=== PATIENT | female | born 1960 | race Caucasian/White ===

== ENCOUNTER 2018-02-12 04:25 | Emergency (ER) | payer OTHER ==
[2018-02-12] MEDS ORDERED: FENTANYL CITR 100 MCG/2 ML ONE (05:18)
[2018-02-12] MEDS ORDERED: ONDANSETRON 4 MG/2 ML VIAL ONE (05:19)
[2018-02-12 05:45] LABS: Absolute Lymphocytes (CBC) 1.4 K/uL (0.7-4.9); Absolute Monocytes 0.4 K/uL (0.1-1.3); Absolute Neutrophil 6.6 K/uL (1.8-8.0); Basophils % 0.3 % (0-1.3); Eosinophils % 0.8 % (0-4.4); Hematocrit 42.3 % (36.0-45.0); Lymphocytes % 16.2 % (15.3-44.8); MCH 30.4 pg (27.0-35.0); MCV 90.7 fL (80-100); MPV 8.7 fL (7.6-11.3); Monocytes % 4.2 % (3.3-12.3); RBC Red Blood Cell Count 4.66 M/uL (3.86-4.86)
[2018-02-12] MEDS ORDERED: FAMOTIDINE 20 MG/2 ML VIAL IV ONE (05:49)
[2018-02-12 05:52] LABS: Protime INR 0.93
[2018-02-12 06:08] LABS: ALT/SGPT 34 U/L (12-78); AST/SGOT 24 U/L (15-37); Albumin 3.6 g/dL (3.4-5.0); Alkaline Phosphatase 133 U/L (45-117); BUN Blood Urea Nitrogen 19 mg/dL (7-18); Bicarbonate 24 mmol/L (21-32); Bilirubin Direct < 0.1 mg/dL (0-0.2); Bilirubin Total 0.2 mg/dL (0.2-1.0); Glucose Level 114 mg/dL (74-106); Magnesium 2.1 mg/dL (1.8-2.4); NT PRO-BNP 79 pg/mL (<125); Potassium 4.3 mmol/L (3.5-5.1); Protein, Total 7.8 g/dL (6.4-8.2); Sodium Level 138 mmol/L (136-145); Troponin (Emerg Dept Use Only) < 0.02 ng/mL (0.0-0.045)
--- NOTE | 2018-02-12 08:12 | RAD REPORT ---
EXAM DESCRIPTION: CT - Chest Abdomen Pelvis W Cont - 02/12/2018 7:10 am CLINICAL HISTORY: Chest and abdominal pain. Vomiting COMPARISON: None TECHNIQUE: Computed axial tomography of the chest, abdomen and pelvis was obtained. 100 cc Isovue-30 0 was administered intravenously. Oral contrast was not requested. This limits evaluation of bowel. All CT scans are performed using dose optimization technique as appropriate and may include automated exposure control or mA/KV adjustment according to patient size. FINDINGS: A pleural effusion is not present. The pericardial effusion is not present. No mediastinal or hilar lymphadenopathy seen The lungs are clear The liver, spleen, pancreas, adrenals and kidneys appear unremarkable. Gallstones are suspected. Gallbladder wall is probably mildly thickened. The appendix is normal. There is no evidence of diverticulitis Tiny umbilical hernia IMPRESSION: Cholelithiasis is suspected. There probably is mild gallbladder wall thickening which ma y indicate cholecystitis
--- NOTE | 2018-02-12 09:16 | RAD REPORT ---
EXAM DESCRIPTION: [facility] Single View02/12/2018 5:13 am CLINICAL HISTORY: Chest pain COMPARISON: 2017 FINDINGS: The lungs appear clear of acute infiltrate. The heart is normal size IMPRESSION: No acute abnormalities displayed
--- NOTE | 2018-02-12 10:19 | EDPHYS ---
Physician Documentation [facility] Name: Ashleigh Vogt Age: 57 yrs Sex: Female : 1960 Arrival Date: 02/12/2018 Time: 04:25 Bed 20 Private MD: ED Physician Ayush Winslow HPI: 02/12 06:17 This 57 yrs old Female presents to ER via Ambulatory with complaints of gs Nausea, Chest Pain. 06:17 The patient presents to the emergency department with nausea, vomiting. Onset: The gs symptoms/episode began/occurred acutely, just prior to arrival, 3 hour(s) ago. Possible causes: unknown. The symptoms are aggravated by nothing. The symptoms are alleviated by nothing. Associated signs and symptoms: Pertinent positives: chest pain. Severity of symptoms: At their worst the symptoms were moderate in the emergency department the symptoms are unchanged. The patient has experienced similar episodes in the past, a few times. The patient has not recently seen a physician. 06:17 Associated signs and symptoms: Pertinent positives: abdominal pain. gs Historical: - Allergies: 04:39 Topamax; fc - Home Meds: 04:39 Ambien 10 mg oral tab 1 tab nightly [Active]; Zoloft 100 mg Oral tab 1.5 tabs once fc daily [Active]; [place] 5-325 mg Oral tab 1 tab three times a day [Active]; - PMHx: 04:39 Depression; High Cholesterol; insomnia; neck pain; Back pain; fc - PSHx: 04:39 eye surg; ; fc - Immunization history:: Last tetanus immunization: up to date Flu vaccine is not up to date. - Social history:: Smoking status: Patient/guardian denies using tobacco, Patient/guardian denies using alcohol, street drugs. - Ebola Screening: : Patient negative for fever greater than or equal to 101.5 degrees Fahrenheit, and additional compatible Ebola Virus Disease symptoms Patient denies exposure to infectious person Patient denies travel to an Ebola-affected area in the 21 days before illness onset. ROS: 06:17 All other systems are negative. gs 16:01 Constitutional: Negative for fever, chills, and weight loss. kdr Exam: 06:17 Head/Face: Normocephalic, atraumatic. Eyes: Pupils equal round and reactive to light, gs extra-ocular motions intact. Lids and lashes normal. Conjunctiva and sclera are non-icteric and not injected. Cornea within normal limits. Periorbital areas with no swelling, redness, or edema. ENT: Nares patent. No nasal discharge, no septal abnormalities noted. Tympanic membranes are normal and external auditory canals are clear. Oropharynx with no redness, swelling, or masses, exudates, or evidence of obstruction, uvula midline. Mucous membranes moist. Neck: Trachea midline, no thyromegaly or masses palpated, and no cervical lymphadenopathy. Supple, full range of motion without nuchal rigidity, or vertebral point tenderness. No Meningismus. Chest/axilla: Normal chest wall appearance and motion. Nontender with no deformity. No lesions are appreciated. Cardiovascular: Regular rate and rhythm with a normal S1 and S2. No gallops, murmurs, or rubs. Normal PMI, no JVD. No pulse deficits. Respiratory: Lungs have equal breath sounds bilaterally, clear to auscultation and percussion. No rales, rhonchi or wheezes noted. No increased work of breathing, no retractions or nasal flaring. Back: No spinal tenderness. No costovertebral tenderness. Full range of motion. Skin: Warm, dry with normal turgor. Normal color with no rashes, no lesions, and no evidence of cellulitis. MS/ Extremity: Pulses equal, no cyanosis. Neurovascular intact. Full, normal range of motion. Neuro: Awake and alert, GCS 15, oriented to person, place, time, and situation. Cranial nerves II-XII grossly intact. Motor strength 5/5 in all extremities. Sensory grossly intact. Cerebellar exam normal. Normal gait. 06:17 Constitutional: The patient appears alert, awake, uncomfortable. 06:17 ECG was reviewed by the Attending Physician. 06:17 Abdomen/GI: Palpation: mild abdominal tenderness, in the epigastric area, pain. 06:20 ECG was reviewed by the Attending Physician. Vital Signs: 04:30 BP 154 / 70; Pulse 67; Resp 18; Temp 97.8(O); Pulse Ox 99% on R/A; Weight 122.47 kg fc (R); Height 5 ft. 3 in. (160.02 cm) (R); Pain 8/10; 05:54 BP 136 / 75; Pulse 60; Resp 15 S; Pulse Ox 96% on R/A; jd3 07:15 BP 134 / 68; Pulse 73; Resp 18; Pulse Ox 99% on R/A; Pain 3/10; em 09:30 BP 131 / 74; Pulse 61; Resp 19; Pulse Ox 97% on R/A; em 10:39 BP 118 / 69; Pulse 75; Resp 18; Pulse Ox 99% on R/A; Pain 3/10; em 04:30 Body Mass Index 47.83 (122.47 kg, 160.02 cm) fc MDM: 04:52 Patient medically screened. gs 06:20 Differential diagnosis: Nonspecific abd pain, gastritis, pancreatitis, cad aaa. Data reviewed: vital signs, nurses notes. 10:12 ED course: The patient is feeling much better and was able to take PO without problem. kdr She was offered admission but felt better and was felt she could follow-up. She also had cataract surgery scheduled and didn't want to compromise that appointment. 02/12 04:53 Order name: Basic Metabolic Panel; Complete Time: 07:45 02/12 04:53 Order name: CBC with Diff; Complete Time: 07:45 02/12 04:53 Order name: LFT's; Complete Time: 07:45 02/12 04:53 Order name: Magnesium; Complete Time: 07:45 02/12 04:53 Order name: NT PRO-BNP; Complete Time: 07:45 02/12 04:53 Order name: PT-INR; Complete Time: 07:45 02/12 04:53 Order name: Troponin (emerg Dept Use Only); Complete Time: 07:45 02/12 04:53 Order name: XRAY Chest (1 view); Complete Time: 10:22 02/12 04:53 Order name: Lipase; Complete Time: 07:45 02/12 06:11 Order name: Troponin (emerg Dept Use Only); Complete Time: 08:11 02/12 06:32 Order name: Chest Abdomen Pelvis W Cont; Complete Time: 08:28 EDNC 02/12 04:41 Order name: EKG; Complete Time: 04:39 [facility] 02/12 04:41 Order name: EKG - Nurse/Tech; Complete Time: 04:41 [facility] 02/12 04:53 Order name: EKG; Complete Time: 04:55 02/12 04:53 Order name: Cardiac monitoring; Complete Time: 04:53 02/12 04:53 Order name: EKG - Nurse/Tech; Complete Time: 04:53 02/12 04:53 Order name: IV Saline Lock; Complete Time: 05:16 02/12 04:53 Order name: Labs collected and sent; Complete Time: 05:16 02/12 04:53 Order name: O2 Per Protocol; Complete Time: 04:54 02/12 04:53 Order name: O2 Sat Monitoring; Complete Time: 04:54 02/12 06:11 Order name: EKG - Nurse/Tech; Complete Time: 06:39 gs EC:40 Rate is 59 beats/min. Rhythm is regular. SD interval is normal. QRS interval is normal. gs QT interval is normal. No Q waves. T waves are Flattened. No ST changes noted. Clinical impression: NSR w/ Non-specific ST/T Changes. Interpreted by me. 06:20 Rate is 59 beats/min. Rhythm is regular. SD interval is normal. QRS interval is normal. gs T waves are Flattened. No ST changes noted. Clinical impression: NSR w/ Non-specific ST/T Changes and Abnormal EKG without significant change. Interpreted by me. Administered Medications: 05:16 Drug: Zofran 4 mg Route: IVP; Site: right forearm; jd3 07:12 Follow up: Response: No adverse reaction em 05:16 Drug: fentaNYL (PF) 50 mcg Route: IVP; Site: right forearm; jd3 07:13 Follow up: Response: No adverse reaction em 05:45 Drug: Pepcid 20 mg Route: IVP; Site: right forearm; jd3 07:13 Follow up: Response: No adverse reaction em 06:43 Drug: fentaNYL (PF) 50 mcg Route: IVP; Site: right forearm; jd3 07:13 Follow up: Response: No adverse reaction em Disposition: 02/12/18 10:18 Discharged to Home. Impression: Abdominal and pelvic pain, Biliary colic. - Condition is Stable. - Discharge Instructions: Cholelithiasis, [id number], Nausea and Vomiting, Adult, Khqf-[id number], Abdominal Pain, Adult, Gguv-zm-Husv. - Prescriptions for Pepcid 20 mg Oral Tablet - take 1 tablet by ORAL route every 12 hours for 5 days; 20 tablet. Zofran 4 mg Oral Tablet - take 1 tablet by ORAL route every 4-6 hours As needed; 12 tablet. Tramadol 50 mg Oral Tablet - take 1 tablet by ORAL route every 4-6 hours as needed; 12 tablet. - Medication Reconciliation Form, Thank You Letter form. - Follow up: Private Physician; When: 2 - 3 days; Reason: If symptoms return, Further diagnostic work-up, Recheck today's complaints, Continuance of care, Re-evaluation by your physician. Follow up: Pancho Noriega MD; When: 2 - 3 days; Reason: If symptoms return, Further diagnostic work-up, Recheck today's complaints, Continuance of care, Re-evaluation by your physician. - Problem is new. - Symptoms have improved. Signatures: Dispatcher [employer] [facility] Ayush Winslow MD MD kdr Chretien, Felicia RN RN fc Daryn Rollins, SPRAY DRY OPERATOR SPRAY DRY OPERATOR em Ryley Campos MD MD gs Davies, Jonathon RN RN jd3 Corrections: (The following items were deleted from the chart) 06:32 06:12 Chest Abdomen W/ Con+CT.RAD.BRZ ordered. [facility] EDNC 10:40 10:18 02/12/2018 10:18 Discharged to Home. Impression: Abdominal and pelvic pain; em Biliary colic. Condition is Stable. Forms are Medication Reconciliation Form, Thank You Letter, Antibiotic Education, Prescription Opioid Use. Follow up: Private Physician; When: 2 - 3 days; Reason: If symptoms return, Further diagnostic work-up, Recheck today's complaints, Continuance of care, Re-evaluation by your physician. Follow up: Pancho Noirega; When: 2 - 3 days; Reason: If symptoms return, Further diagnostic work-up, Recheck today's complaints, Continuance of care, Re-evaluation by your physician. Problem is new. Symptoms have improved. kdr
--- NOTE | 2018-02-12 10:19 | ER ---
Nurse's Notes [facility] Name: Ashleigh Vogt Age: 57 yrs Sex: Female : 1960 Arrival Date: 02/12/2018 Time: 04:25 Bed 20 Private MD: Diagnosis: Abdominal and pelvic pain;Biliary colic Presentation: 02/12 04:30 Presenting complaint: Patient states: that at about midnight she started to have fc epigastric pain that is sharp/stabbing along with nausea and vomiting. Transition of care: patient was not received from another setting of care. Onset of symptoms was February 12, 2018 at 00:00. Risk Assessment: Do you want to hurt yourself or someone else? Patient reports no desire to harm self or others. Initial Sepsis Screen: Does the patient meet any 2 criteria? No. Patient's initial sepsis screen is negative. Does the patient have a suspected source of infection? No. Patient's initial sepsis screen is negative. Care prior to arrival: None. 04:30 Method Of Arrival: Ambulatory 04:30 Acuity: SCARLETT 3 fc Historical: - Allergies: 04:39 Topamax; fc - Home Meds: 04:39 Ambien 10 mg oral tab 1 tab nightly [Active]; Zoloft 100 mg Oral tab 1.5 tabs once fc daily [Active]; [place] 5-325 mg Oral tab 1 tab three times a day [Active]; - PMHx: 04:39 Depression; High Cholesterol; insomnia; neck pain; Back pain; fc - PSHx: 04:39 eye surg; ; fc - Immunization history:: Last tetanus immunization: up to date Flu vaccine is not up to date. - Social history:: Smoking status: Patient/guardian denies using tobacco, Patient/guardian denies using alcohol, street drugs. - Ebola Screening: : Patient negative for fever greater than or equal to 101.5 degrees Fahrenheit, and additional compatible Ebola Virus Disease symptoms Patient denies exposure to infectious person Patient denies travel to an Ebola-affected area in the 21 days before illness onset. Screenin:30 Abuse screen: Denies threats or abuse. Nutritional screening: No deficits noted. fc Tuberculosis screening: No symptoms or risk factors identified. Fall Risk None identified. Assessment: 04:38 General: Appears in no apparent distress. uncomfortable, Behavior is calm, cooperative, jd3 appropriate for age. Pain: Complains of pain in epigastric area Quality of pain is described as sharp. Neuro: Level of Consciousness is awake, alert, obeys commands, Oriented to person, place, time, situation, Appropriate for age. Cardiovascular: Heart tones S1 S2 present Capillary refill < 3 seconds Patient's skin is warm and dry. Respiratory: Airway is patent Respiratory effort is even, unlabored, Respiratory pattern is regular, symmetrical, Breath sounds are clear bilaterally. GI: Abdomen is round non-distended, obese, Bowel sounds present X 4 quads. Abd is soft and non tender X 4 quads. Reports upper abdominal pain, nausea, vomiting, Patient currently denies diarrhea. : No signs and/or symptoms were reported regarding the genitourinary system. EENT: No signs and/or symptoms were reported regarding the EENT system. Derm: Skin is intact, Skin is dry, Skin is normal, Skin temperature is warm. Musculoskeletal: Circulation, motion, and sensation intact. Range of motion: intact in all extremities. 05:54 Reassessment: Patient appears in no apparent distress at this time. Patient and/or jd3 family updated on plan of care and expected duration. Pain level reassessed. Patient is alert, oriented x 3, equal unlabored respirations, skin warm/dry/pink. 07:15 Reassessment: Patient appears in no apparent distress at this time. Patient and/or em family updated on plan of care and expected duration. Pain level reassessed. Patient is alert, oriented x 3, equal unlabored respirations, skin warm/dry/pink. rates pain 3/10 Patient states feeling better. Patient states symptoms have improved. 08:29 Reassessment: Patient appears in no apparent distress at this time. Patient and/or em family updated on plan of care and expected duration. Pain level reassessed. Patient is alert, oriented x 3, equal unlabored respirations, skin warm/dry/pink. resting comfortably in bed, pending disposition. 10:18 Reassessment: Patient appears in no apparent distress at this time. Patient and/or em family updated on plan of care and expected duration. Pain level reassessed. Patient is alert, oriented x 3, equal unlabored respirations, skin warm/dry/pink. given crackers and soda, tolerated well Patient states feeling better. Patient states symptoms have improved. Vital Signs: 04:30 BP 154 / 70; Pulse 67; Resp 18; Temp 97.8(O); Pulse Ox 99% on R/A; Weight 122.47 kg (R); Height 5 ft. 3 in. (160.02 cm) (R); Pain 8/10; 05:54 BP 136 / 75; Pulse 60; Resp 15 S; Pulse Ox 96% on R/A; jd3 07:15 BP 134 / 68; Pulse 73; Resp 18; Pulse Ox 99% on R/A; Pain 3/10; em 09:30 BP 131 / 74; Pulse 61; Resp 19; Pulse Ox 97% on R/A; em 10:39 BP 118 / 69; Pulse 75; Resp 18; Pulse Ox 99% on R/A; Pain 3/10; em 04:30 Body Mass Index 47.83 (122.47 kg, 160.02 cm) ED Course: 04:25 Patient arrived in ED. am2 04:30 Arm band placed on Patient placed in an exam room, on a stretcher. fc 04:30 Patient has correct armband on for positive identification. Bed in low position. Call light in reach. telemetry monitor on. Pulse ox on. NIBP on. 04:30 No provider procedures requiring assistance completed. fc 04:32 Ryley Campos MD is Attending Physician. gs 04:35 Khoi Nuñez, RN is Primary Nurse. jd3 04:36 Triage completed. fc 05:05 Inserted saline lock: 22 gauge in right forearm, using aseptic technique. Blood jd3 collected. 05:12 X-ray completed. Portable x-ray completed in exam room. Patient tolerated procedure kw well. 05:15 XRAY Chest (1 view) In Process Unspecified. EDMS 07:09 CT completed. Patient tolerated procedure well. Patient moved to CT via stretcher. Patient moved back from CT. 07:11 Attending Physician role handed off by Ryley Campos MD kdr 07:11 Ayush Winslow MD is Attending Physician. kdr 07:14 Chest Abdomen Pelvis W Cont In Process Unspecified. EDMS 10:16 Pancho Noriega MD is Referral Physician. kdr 10:40 IV discontinued, intact, bleeding controlled, No redness/swelling at site. Pressure em dressing applied. Administered Medications: 05:16 Drug: Zofran 4 mg Route: IVP; Site: right forearm; jd3 07:12 Follow up: Response: No adverse reaction em 05:16 Drug: fentaNYL (PF) 50 mcg Route: IVP; Site: right forearm; jd3 07:13 Follow up: Response: No adverse reaction em 05:45 Drug: Pepcid 20 mg Route: IVP; Site: right forearm; jd3 07:13 Follow up: Response: No adverse reaction em 06:43 Drug: fentaNYL (PF) 50 mcg Route: IVP; Site: right forearm; jd3 07:13 Follow up: Response: No adverse reaction em Outcome: 10:18 Discharge ordered by MD. kdr 10:40 Discharged to home ambulatory. em 10:40 Condition: good 10:40 Discharge instructions given to patient, Instructed on discharge instructions, follow up and referral plans. medication usage, Demonstrated understanding of instructions, follow-up care, medications, Prescriptions given X 3. 10:40 Patient left the ED. em Signatures: Dispatcher [employer] EDMS Ayush Winslow MD MD kdr Hagler, Ervin eh Chretien, Felicia, RN RN Daryn Rollins, ETL ANALYST ETL ANALYST em Ivana Reyes Amanda am2 Starr, Gregory, MD MD gs Davies, Jonathon, RN RN jd3
--- NOTE | 2018-02-12 14:15 | EKG ---
Test Date: 2018-02-12 Test Time: 06:15:47 Manager Credit: AKIL MEASUREMENT RESULTS: Intervals: Rate: 59 AK: 176 QRSD: 78 QT: 432 QTc: 427 [place]: P: 35 AK: 176 QRS: 36 T: 69 INTERPRETIVE STATEMENTS: Sinus bradycardia Nonspecific T wave abnormality Abnormal ECG Compared to ECG 12/16/2016 20:23:33 Sinus rhythm no longer present T-wave abnormality still present Electronically Signed On 02-12-18 14:14:13 FIELD ARTILLERY SENIOR SERGEANT by Dallas Navarro
--- NOTE | 2018-02-12 14:15 | EKG ---
Test Date: 2018-02-12 Test Time: 04:38:53 Food Cart Attendant: GRISELDA MEASUREMENT RESULTS: Intervals: Rate: 59 TN: 174 QRSD: 74 QT: 410 QTc: 405 [place]: P: 25 TN: 174 QRS: 31 T: 74 INTERPRETIVE STATEMENTS: Sinus bradycardia Nonspecific T wave abnormality Abnormal ECG Compared to ECG 12/16/2016 20:23:33 Sinus rhythm no longer present T-wave abnormality still present Electronically Signed On 02-12-18 14:14:40 TRANSITION MGR RN by Dallas Navarro
== END 2018-02-12 10:40 | disposition home or self-care (01) ==
LOC: ER 04:25
DX: K80.50 Calculus of bile duct without cholangitis or cholecystitis without obstruction (principal); E78.00 Pure hypercholesterolemia, unspecified; F32.9 Major depressive disorder, single episode, unspecified; Z88.8 Allergy status to other drugs, medicaments and biological substances
CPT/HCPCS: 36415; 71045; 71260; 74177; 80048; 80076; 83690; 83735; 83880; 84484 ×2; 85025; 85610; 93005 ×2; 96374; 96375; 99285; J2405; J3010; Q9967

== ENCOUNTER 2018-02-15 12:51 | Day surgery (SDC) | payer OTHER ==
[2018-02-15] MEDS ORDERED: LIDOCAINE 2% MPF 5 ML VIAL ONE ×2 (13:20→14:10)
[2018-02-15] MEDS ORDERED: TETRACAINE HCL 0.5% 2ML OPTH ONE (13:21)
[2018-02-15] MEDS ORDERED: NA CHLORIDE 0.9% 500 ML ONE (13:21)
[2018-02-15] MEDS: CYCLOPENTOLATE 1% OPTH 2 ML ONE ×3 (13:23→13:33)
[2018-02-15] MEDS: PHENYLEPHRINE 10% OPTH 5ML ONE ×3 (13:23→13:33)
[2018-02-15] MEDS ORDERED: BALANCED SALT IRRIG PLAIN 500 ML BTL IRR ONE (13:42)
[2018-02-15] MEDS ORDERED: NS 0.9% VIAL 10 ML ONE (13:42)
[2018-02-15] MEDS ORDERED: DUOVISC 1 KIT OPTH ONE (13:42)
[2018-02-15] MEDS ORDERED: EPINEPHRINE/PF 1 MG/ML AMP ONE (13:42)
[2018-02-15] MEDS ORDERED: MOXIFLOXACIN HCL 10 DROPS/ML **OR USE OPTH ONE (13:43)
[2018-02-15] MEDS ORDERED: BUPIVACAINE 0.25% PF 10 ML VIAL ONE (13:56)
[2018-02-15] MEDS ORDERED: PROPOFOL 200 MG/20 ML VIAL IV ONE (14:09)
--- NOTE | 2018-02-15 15:26 | P.BOP ---
Preoperative diagnosis: Nuclear sclerotic cataract OD Postoperative diagnosis: Same Primary procedure: Phacoemulsification with IOL OD Estimated blood loss: None Anesthesia: Local (Subtenon's infusion with anesthesia for cataract surgery) Complications: None Implants: [id number] +26.5 Transferred to: Other (Day surgery) Condition: Good
--- NOTE | 2018-02-16 02:56 | OP ---
Surgeon: Denise Christine MD Anesthesiologist: Sharon Castanon CRNA and Sadiq Mccormack MD. Preoperative Diagnosis: Nuclear sclerotic cataract, right eye. Operation Performed: Phacoemulsification with intraocular lens implant, right eye. Anesthesia: Per cataract surgery. Complications: None. Description Of Procedure: In day surgery, the patient was prepped with Betadine and draped. A conju nctival incision was made in the inferior nasal quadrant with Yong scissors. A sub-Tenon block c onsisting of a 1:1 mixture of 2% Xylocaine and 0.25% bupivacaine was placed through the conjunctival incision with a blunt cannula. A [place] balloon was placed over the eye and the patient was transferr ed to the operating room. In the operating room the patient was prepped and draped in the usual sterile fashion for ophthalmic surgery. A lid speculum was placed in the right eye. Two paracentesis sites were made superiorly an d inferiorly in the limbal cornea. Viscoat was placed in the anterior chamber and a crescent blade w as used to make a corneal groove and tunnel, and a keratome was used to enter the anterior chamber. Provisc was placed in the anterior chamber and a 360 degree capsulotomy was performed with a cystitom e. The lens was hydrodissected with BSS and rotated freely. The lens was removed with a stop and ch op technique. A 33.36 phaco CDE was used to remove the lens. Residual cortex was removed with the i rrigation and aspiration. Provisc was placed in the capsular bag. A ZCB00 +26.[address] aced in the capsular bag without complications. Irrigation and aspiration were used to remove residu al viscoelastic. The paracentesis sites were hydrated with BSS. The wound and paracentesis sites we re inspected and found to be watertight. Vigamox 0.07 cc was placed intracamerally at the end of the procedure. The eye was irrigated with balanced salt solution. The eye was patched with a soft cott on patch and Lee metal shield. The patient was returned to day surgery in good condition. Comments: The conjunctiva was incised with Yong scissors and the incision was initiated in the s clera rather than in the cornea. Discharge Instructions: Ms. Vogt is discharged to home in good condition and is to follow up with Dr. Christine in the morning. ATUL/ROBBI Voice ID: [id number] Report ID: [id number]
== END 2018-02-15 16:08 | disposition home or self-care (01) ==
LOC: OR 12:51
PROVIDERS: ATTEND Ophthalmology Retina Specialist
PROC: 08RJ3JZ Replacement of Right Lens with Synthetic Substitute, Percutaneous Approach (ICD-10-PCS; principal; 2018-02-15 11:45)
DX: H25.11 Age-related nuclear cataract, right eye (principal); M19.90 Unspecified osteoarthritis, unspecified site; F32.9 Major depressive disorder, single episode, unspecified; Z88.6 Allergy status to analgesic agent; Z83.518 Family history of other specified eye disorder
CPT/HCPCS: 66984; J0171; J2704

== ENCOUNTER 2018-02-24 06:13 | Day surgery (SDC) | payer OTHER ==
[2018-02-23 15:26] LABS: Absolute Lymphocytes (CBC) 2.1 K/uL (0.7-4.9); Absolute Monocytes 0.5 K/uL (0.1-1.3); Absolute Neutrophil 4.4 K/uL (1.8-8.0); Basophils % 0.5 % (0-1.3); Eosinophils % 1.5 % (0-4.4); Lymphocytes % 29.3 % (15.3-44.8); MCV 90.9 fL (80-100); MPV 8.8 fL (7.6-11.3); Monocytes % 7.3 % (3.3-12.3); RBC Red Blood Cell Count 4.73 M/uL (3.86-4.86)
[2018-02-23 15:37] LABS: Potassium 4.3 mmol/L (3.5-5.1)
[2018-02-23 15:39] LABS: Albumin 3.7 g/dL (3.4-5.0); Bilirubin Direct 0.1 mg/dL (0-0.2); Bilirubin Total 0.3 mg/dL (0.2-1.0); Protein, Total 7.7 g/dL (6.4-8.2)
[2018-02-24] MEDS ORDERED: CEFOXITIN/SWI 1gm 1 GM/10 ML SYR ONE (07:16)
[2018-02-24] MEDS ORDERED: Ringers Lactate 1,000 ML IV ONE ×2 (07:16→09:13)
[2018-02-24] MEDS ORDERED: MIDAZOLAM HCL 2 MG/2 ML INJ ONE (07:25)
[2018-02-24] MEDS ORDERED: FENTANYL CITR 100 MCG/2 ML ONE ×2 (07:25→08:34)
[2018-02-24] MEDS ORDERED: PROPOFOL 200 MG/20 ML VIAL IV ONE (07:25)
[2018-02-24] MEDS ORDERED: LIDOCAINE 1% MPF 5 ML VIAL ONE (07:26)
[2018-02-24] MEDS ORDERED: ROCURONIUM 50 MG/5 ML VIAL IV ONE (07:26)
[2018-02-24] MEDS ORDERED: KETOROLAC 30 MG/ML INJ ONE (08:24)
[2018-02-24] MEDS ORDERED: GLYCOPYRROLATE 0.2 MG/ML SYR ONE ×3 (08:24→08:28)
[2018-02-24] MEDS ORDERED: NEOSTIGMINE 1 MG/ML -5 ML SYRINGE ONE (08:24)
[2018-02-24] MEDS ORDERED: DEXAMETHASONE 10 MG/ML VIAL ONE (08:25)
[2018-02-24] MEDS ORDERED: ONDANSETRON 4 MG/2 ML VIAL ONE (08:25)
--- NOTE | 2018-02-24 08:59 | P.BOP ---
Preoperative diagnosis: acute cholecystitis, symptomatic cholelithiasis Postoperative diagnosis: same Primary procedure: Laparoscopic cholecystectomy Estimated blood loss: <10cc Specimen: gb Findings: as above Anesthesia: General Complications: None Transferred to: Recovery Room Condition: Good
[2018-02-24] MEDS: MEPERIDINE HCL 25 MG/0.5 ML ONE ×2 (09:06→09:16)
[2018-02-24] MEDS: MEPERIDINE HCL 50 MG/ML AMP ONE ×2 (09:24→09:30)
[2018-02-24] MEDS ORDERED: HYDROCODONE/APAP 5/325 MG TAB ONE (10:34)
== END 2018-02-24 11:15 | disposition home or self-care (01) ==
LOC: OR 06:13
PROVIDERS: ATTEND Surgery
PROC: 0FT44ZZ Resection of Gallbladder, Percutaneous Endoscopic Approach (ICD-10-PCS; principal; 2018-02-24 07:30)
DX: K80.12 Calculus of gallbladder with acute and chronic cholecystitis without obstruction (principal); E66.01 Morbid (severe) obesity due to excess calories; Z68.42 Body mass index [BMI] 45.0-49.9, adult; Z88.8 Allergy status to other drugs, medicaments and biological substances; Z83.3 Family history of diabetes mellitus
CPT/HCPCS: 36415; 47562; 80048; 80076; 82150; 83690; 84703; 85025; 88304; J1100; J2175 ×2; J2250; J2405; J2704; J2710; J3010 ×2

== ENCOUNTER 2019-06-26 13:10 | Emergency (ER) | payer OTHER ==
--- NOTE | 2019-06-26 14:05 | RAD REPORT ---
EXAM DESCRIPTION: [facility] Single View06/26/2019 1:54 pm CLINICAL HISTORY: cough COMPARISON: none FINDINGS: The lungs appear clear of acute infiltrate. The heart is mildly enlarged IMPRESSION: No acute abnormalities displayed
--- NOTE | 2019-06-26 14:16 | EDPHYS ---
Physician Documentation [facility] Name: Ashleigh Vogt Age: 58 yrs Sex: Female : 1960 Arrival Date: 06/26/2019 Time: 13:12 Bed 6 Private MD: ED Physician Lisa Hinojosa HPI: 06/25 14:17 This 58 yrs old Female presents to ER via Ambulatory with complaints of kb Breathing Difficulty. 14:18 The patient or guardian reports cough, that is intermittent, described as moderate, kb with no sputum, difficulty breathing. Onset: The symptoms/episode began/occurred 3 week(s) ago. Severity of symptoms: At their worst the symptoms were moderate, in the emergency department the symptoms are unchanged. Modifying factors: The symptoms are alleviated by nothing, the symptoms are aggravated by nothing. Associated signs and symptoms: The patient has no apparent associated signs or symptoms. The patient has not experienced similar symptoms in the past. The patient has not recently seen a physician. Pt reports cough, wheezing and shortness of breath for 3 weeks. States she just completed a course of steroids and still isn't better so she came to get an x-ray to make sure there wasn't a pneumonia. States she was tested for covid on Thursday and hasn't gotten results. . Historical: - Allergies: 13:25 Topamax; ll1 - PMHx: 13:25 Back pain; High Cholesterol; Depression; insomnia; neck pain; ll1 - PSHx: 13:25 eye surg; ; ll1 - Social history:: Smoking status: Patient denies any tobacco usage or history of. Patient uses alcohol, only on a social basis. Patient/guardian denies using street drugs, tobacco products. ROS: 14:17 Constitutional: Negative for fever, chills, and weight loss, ENT: Negative for injury, kb pain, and discharge, Neck: Negative for injury, pain, and swelling, Cardiovascular: Negative for chest pain, palpitations, and edema, Abdomen/GI: Negative for abdominal pain, nausea, vomiting, diarrhea, and constipation, Back: Negative for injury and pain, MS/Extremity: Negative for injury and deformity, Skin: Negative for injury, rash, and discoloration, Neuro: Negative for headache, weakness, numbness, tingling, and seizure. 14:17 Respiratory: Positive for cough, shortness of breath, Negative for dyspnea on exertion, hemoptysis, orthopnea, pleurisy, sputum production, wheezing. Exam: 14:17 Constitutional: This is a well developed, well nourished patient who is awake, alert, kb and in no acute distress. Head/Face: Normocephalic, atraumatic. ENT: Nares patent. No nasal discharge, no septal abnormalities noted. Tympanic membranes are normal and external auditory canals are clear. Oropharynx with no redness, swelling, or masses, exudates, or evidence of obstruction, uvula midline. Mucous membranes moist. Neck: Trachea midline, no thyromegaly or masses palpated, and no cervical lymphadenopathy. Supple, full range of motion without nuchal rigidity, or vertebral point tenderness. No Meningismus. Chest/axilla: Normal chest wall appearance and motion. Nontender with no deformity. No lesions are appreciated. Cardiovascular: Regular rate and rhythm with a normal S1 and S2. No gallops, murmurs, or rubs. Normal PMI, no JVD. No pulse deficits. Respiratory: Lungs have equal breath sounds bilaterally, clear to auscultation and percussion. No rales, rhonchi or wheezes noted. No increased work of breathing, no retractions or nasal flaring. Abdomen/GI: Soft, non-tender, with normal bowel sounds. No distension or tympany. No guarding or rebound. No evidence of tenderness throughout. Skin: Warm, dry with normal turgor. Normal color with no rashes, no lesions, and no evidence of cellulitis. MS/ Extremity: Pulses equal, no cyanosis. Neurovascular intact. Full, normal range of motion. Neuro: Awake and alert, GCS 15, oriented to person, place, time, and situation. Cranial nerves II-XII grossly intact. Motor strength 5/5 in all extremities. Sensory grossly intact. Cerebellar exam normal. Normal gait. Vital Signs: 13:20 BP 178 / 95; Pulse 83; Resp 20; Temp 98.3(O); Pulse Ox 96% on R/A; Pain 2/10; ll1 MDM: 13:19 Patient medically screened. kb 14:17 Data reviewed: vital signs, nurses notes. Data interpreted: Pulse oximetry: on room air kb is 96 %. Interpretation: normal. 14:17 Counseling: I had a detailed discussion with the patient and/or guardian regarding: the kb historical points, exam findings, and any diagnostic results supporting the discharge/admit diagnosis, radiology results, the need for outpatient follow up, a family practitioner, to return to the emergency department if symptoms worsen or persist or if there are any questions or concerns that arise at home. 04 13:44 Order name: Chest Single View; Complete Time: 14:11 EDMN Administered Medications: No medications were administered Disposition: 17:23 Co-signature as Attending Physician, Lisa Hinojosa MD. ma2 Disposition: 06/26/19 14:16 Discharged to Home. Impression: Bronchitis, not specified as acute or chronic. - Condition is Stable. - Discharge Instructions: Acute Bronchitis, [id number], Viral Respiratory Infection, [id number]. - Medication Reconciliation Form, Thank You Letter, Antibiotic Education, Prescription Opioid Use form. - Follow up: Emergency Department; When: As needed; Reason: Worsening of condition. Follow up: Private Physician; When: 2 - 3 days; Reason: Recheck today's complaints, Continuance of care, Re-evaluation by your physician. Signatures: Dispatcher [employer] [facility] Xiomy Maya, CLINICAL NURSING MANAGER-C CLINICAL NURSING MANAGER-Daryn Sarah, RN Lisa Tijerina MD MD ma2 Felice Fisher RN RN ll1 Corrections: (The following items were deleted from the chart) 13:44 13:25 Chest Pa And Lat (2 Views)+RAD.RAD.BRZ ordered. [facility] 14:25 14:16 06/26/2019 14:16 Discharged to Home. Impression: Bronchitis, not specified as em acute or chronic. Condition is Stable. Forms are Medication Reconciliation Form, Thank You Letter, Antibiotic Education, Prescription Opioid Use. Follow up: Emergency Department; When: As needed; Reason: Worsening of condition. Follow up: Private Physician; When: 2 - 3 days; Reason: Recheck today's complaints, Continuance of care, Re-evaluation by your physician. kb
--- NOTE | 2019-06-26 14:16 | ER ---
Nurse's Notes [facility] Name: Ashleigh Vogt Age: 58 yrs Sex: Female : 1960 Arrival Date: 06/26/2019 Time: 13:12 Bed 6 Private MD: Diagnosis: Bronchitis, not specified as acute or chronic Presentation: 06/25 13:20 Chief complaint: Patient states: Cough for 3 weeks. Took round of steroids, cough ll1 med.-not any better. Highest fever at home 99.5. Chest pain is intermittent since yesterday with SOB noticed today. States she hasn't gotten the result of her covid test eyt. Coronavirus screen: Surgical mask placed on patient. Patient moved to private room, placed in contact and droplet isolation with eye protection until further assessment. Patient reports a cough. Patient reports shortness of breath or difficulty breathing. Patient denies measured and/or subjective temperature greater than 100.4F prior to today's visit. Patient denies travel on a cruise ship or to a country the [facility] currently lists as an affected area. Patient denies contact with known and/or suspected case of COVID-19. Ebola Screen: Patient denies travel to an Ebola-affected area in the 21 days before illness onset. Initial Sepsis Screen: Does the patient meet any 2 criteria? No. Patient's initial sepsis screen is negative. Risk Assessment: Do you want to hurt yourself or someone else? Patient reports no desire to harm self or others. Onset of symptoms was June 06, 2019. 13:20 Method Of Arrival: Ambulatory ll1 13:20 Acuity: SCARLETT 3 ll1 Historical: - Allergies: 13:25 Topamax; ll1 - PMHx: 13:25 Back pain; High Cholesterol; Depression; insomnia; neck pain; ll1 - PSHx: 13:25 eye surg; ; ll1 - Social history:: Smoking status: Patient denies any tobacco usage or history of. Patient uses alcohol, only on a social basis. Patient/guardian denies using street drugs, tobacco products. Screenin:39 Abuse screen: Denies threats or abuse. Nutritional screening: No deficits noted. em Tuberculosis screening: No symptoms or risk factors identified. Fall Risk None identified. Assessment: 14:15 General: Appears in no apparent distress. uncomfortable, Behavior is calm, cooperative, em appropriate for age, Denies fever. Pain: Complains of pain in chest Pain currently is 2 out of 10 on a pain scale. Neuro: Level of Consciousness is awake, alert, obeys commands, Oriented to person, place, time, situation, Appropriate for age. Cardiovascular: Rhythm is regular. Respiratory: Reports shortness of breath cough that is dry, Airway is patent Respiratory effort is even, unlabored, Respiratory pattern is regular, symmetrical, Breath sounds are clear bilaterally. Onset: The symptoms/episode began/occurred 3 weeks ago. GI: Abdomen is obese. Derm: Skin is intact, is healthy with good turgor, Skin is pink, warm \T\ dry. Musculoskeletal: Capillary refill < 3 seconds, Range of motion: intact in all extremities. Vital Signs: 13:20 BP 178 / 95; Pulse 83; Resp 20; Temp 98.3(O); Pulse Ox 96% on R/A; Pain 2/10; ll1 ED Course: 13:12 Patient arrived in ED. mr 13:17 Xiomy Maya FNP-C is [facility]. kb 13:18 Lisa Hinojosa MD is Attending Physician. kb 13:24 Triage completed. ll1 13:25 Arm band placed on Patient placed in an exam room, on a stretcher. ll1 13:39 Patient has correct armband on for positive identification. Placed in gown. Bed in low em position. Call light in reach. 13:54 Daryn Rollins, RN is Primary Nurse. em 13:55 Chest Single View In Process Unspecified. EDMS 14:25 No provider procedures requiring assistance completed. Patient did not have IV access em during this emergency room visit. Administered Medications: No medications were administered Outcome: 14:16 Discharge ordered by . kb 14:25 Discharged to home ambulatory. em 14:25 Condition: good 14:25 Discharge instructions given to patient, Instructed on discharge instructions, follow up and referral plans. Demonstrated understanding of instructions, follow-up care. 14:25 Patient left the ED. em Signatures: Dispatcher [employer] EDMS Xiomy Maya FNP-C FNP-Ckb Sean Deepali mr Daryn Rollins RN RN em Felice Fisher RN RN 1
[2019-06-26 14:32] VITALS: BP 178/95; TEMP 98.3; O2SAT 96
== END 2019-06-26 14:25 | disposition home or self-care (01) ==
LOC: ER 13:10
DX: J40 Bronchitis, not specified as acute or chronic (principal)
CPT/HCPCS: 71045; 99283

== ENCOUNTER 2020-02-12 11:09 | Emergency (ER) | payer OTHER ==
[2020-02-12 12:47] LABS: Absolute Lymphocytes (CBC) 1.7 K/uL (0.7-4.9); Basophils % 0.6 % (0-1.3); Hematocrit 40.1 % (36.0-45.0); Lymphocytes % 24.1 % (15.3-44.8); MPV 8.4 fL (7.6-11.3); RBC Red Blood Cell Count 4.49 M/uL (3.86-4.86)
[2020-02-12 13:06] LABS: BUN Blood Urea Nitrogen 8 mg/dL (7-18); Bicarbonate 25 mmol/L (21-32); Ferritin 25.7 ng/mL (8-388); Glucose Level 110 mg/dL (74-106); NT PRO-BNP 83 pg/mL (<125); Potassium 3.7 mmol/L (3.5-5.1); Sodium Level 142 mmol/L (136-145); Troponin I < 0.02 ng/mL (0.0-0.045)
[2020-02-12 13:11] LABS: Platelet Estimate ADEQ; White Blood Cell Scan OK (OK)
[2020-02-12 13:12] LABS: Blood Morphology Comment NOT SEEN (NOT SEEN)
--- NOTE | 2020-02-12 13:34 | RAD REPORT ---
EXAM DESCRIPTION: RAD - Chest Single View - 02/12/2020 12:07 pm CLINICAL HISTORY: COUGH, chest pain, chest tightness COMPARISON: June 25 TECHNIQUE: AP portable chest image was obtained 02/12/2020 12:07 pm . FINDINGS: Lung volumes are low. The very large body habitus and portable technique limit assessment. No peripheral mass or consolidation. No measurable failure or volume overload. Lung markings are not significantly different from comparison. Heart and vasculature are normal. No measurable pleural eff usion and no pneumothorax. No acute bony abnormality seen. No acute aortic findings suspected. IMPRESSION: Limited portable study without acute cardiopulmonary finding. No significant change comparison.
--- NOTE | 2020-02-12 13:55 | EDPHYS ---
Physician Documentation [facility] Name: Ashleigh Vogt Age: 59 yrs Sex: Female : 1960 Arrival Date: 02/12/2020 Time: 11:12 Bed 15 Private MD: ED Physician Philippe Shelton HPI: 02/11 12:02 This 59 yrs old Female presents to ER via Ambulatory with complaints of Chest rn Pain, Cough, Shortness Of Breath. 12:02 The patient or guardian reports chest pain that is located primarily in the chest rn diffusely. Onset: yesterday. The pain does not radiate. Associated signs and symptoms: Pertinent positives: cough, shortness of breath, Pertinent negatives: abdominal pain, dizziness, headache, lower extremity pain, lower extremity swelling, near syncope, palpitations. The chest pain is described as aching, squeezing. 12:04 Severity of pain: At its worst the pain was mild in the emergency department the pain rn is unchanged. The patient has experienced a previous episode. Reports cough, bilateral chest tightness, sob, began last night, no sick contacts or COVID exposure. Feels similar to time she had bronchitis but not as bad this time. No trauma or fall. No hemoptysis. No hx of dvt/PE. . Historical: - Allergies: 11:47 Topamax; ca1 - Home Meds: 11:47 Ambien 10 mg Oral tab 1 tab nightly [Active]; ca1 - PMHx: 11:47 Back pain; High Cholesterol; insomnia; neck pain; Depression; ca1 - PSHx: 11:47 ; eye surg; Cholecystectomy; ca1 - Immunization history:: Adult Immunizations up to date, Flu vaccine is not up to date. - Social history:: Smoking status: Patient denies any tobacco usage or history of. - Family history:: not pertinent. - Hospitalizations: : No recent hospitalization is reported. ROS: 12:06 Constitutional: Negative for fever, chills, and weight loss, Eyes: Negative for injury, rn pain, redness, and discharge, Neck: Negative for injury, pain, and swelling, Cardiovascular: Negative for palpitations, and edema Respiratory: + cough and sob Abdomen/GI: Negative for abdominal pain, nausea, vomiting, diarrhea, and constipation, Back: Negative for injury and pain, : Negative for injury, bleeding, discharge, and swelling, MS/Extremity: Negative for injury and deformity, Skin: Negative for injury, rash, and discoloration, Neuro: Negative for headache, numbness, tingling, and seizure. Exam: 12:06 Constitutional: This is a well developed, well nourished patient who is awake, alert, rn and in no acute distress. Head/Face: Normocephalic, atraumatic. Eyes: Pupils equal round and reactive to light, extra-ocular motions intact ENT: No stridor Cardiovascular: Regular rate and rhythm. No pulse deficits. Respiratory: Mild tachypnea, clear bilateral breath sounds. Abdomen/GI: soft, non-tender Skin: Warm, dry MS/ Extremity: Pulses equal, no cyanosis. Neurovascular intact. Full, normal range of motion. Equal circumference. Neuro: Awake and alert, GCS 15, oriented to person, place, time, and situation. Vital Signs: 11:45 BP 128 / 100; Pulse 89; Resp 20 S; Temp 98(O); Pulse Ox 99% on R/A; Weight 127.01 kg ca1 (R); Height 5 ft. 3 in. (160.02 cm); Pain 2/10; 12:41 BP 126 / 102; Pulse 84; Resp 20 S; Pulse Ox 97% on R/A; ca1 13:41 BP 135 / 87; Pulse 70; Resp 18 S; Pulse Ox 97% on R/A; ca1 11:45 Body Mass Index 49.60 (127.01 kg, 160.02 cm) ca1 MDM: 11:39 Patient medically screened. rn 13:53 Differential diagnosis: pneumonia, pneumothorax, pulmonary embolus, COVID, flu, rn bronchitis. Data reviewed: vital signs, nurses notes, lab test result(s), radiologic studies, plain films, and as a result, I will discharge patient. Counseling: I had a detailed discussion with the patient and/or guardian regarding: the historical points, exam findings, and any diagnostic results supporting the discharge/admit diagnosis, lab results, radiology results, the need for outpatient follow up, to return to the emergency department if symptoms worsen or persist or if there are any questions or concerns that arise at home. Special discussion: I discussed with the patient/guardian in detail that at this point there is no indication for admission to the hospital. It is understood, however, that if the symptoms persist or worsen the patient needs to return immediately for re-evaluation. Based on the history and exam findings, there is no indication for further emergent testing or inpatient evaluation. I discussed with the patient/guardian the need to see the primary care provider for further evaluation of the symptoms. ED course: CXR clear of infiltrate, no acute findings in bloodwork, neg flu/strep, COVID pending. Could be early infection vs COVID, will dc home with abx and inhaler with pcp f/u and return precautions. . 02/11 11:46 Order name: CBC with Diff; Complete Time: 13:34 rn 02/11 11:46 Order name: Basic Metabolic Panel; Complete Time: 13:34 rn 02/11 11:46 Order name: COVID-19 02/11 11:46 Order name: Flu; Complete Time: 13:34 02/11 11:46 Order name: Strep; Complete Time: 13:34 02/11 11:46 Order name: XRAY Chest (1 view); Complete Time: 13:49 02/11 11:46 Order name: Ferritin; Complete Time: 13:34 02/11 11:47 Order name: D-Dimer; Complete Time: 13:34 02/11 12:05 Order name: LAB Add On eb 02/11 12:45 Order name: Troponin I; Complete Time: 13:34 EDMN 02/11 12:45 Order name: NT PRO-BNP; Complete Time: 13:34 [facility] 02/11 13:06 Order name: Throat Culture [facility] 02/11 13:12 Order name: CBC Smear Scan; Complete Time: 13:34 [facility] 02/11 11:46 Order name: Droplet/Contact Precautions; Complete Time: 12:24 rn 02/11 11:46 Order name: Labs collected and sent; Complete Time: 12:32 rn 02/11 11:46 Order name: O2 Per Protocol; Complete Time: 12:32 rn 02/11 11:46 Order name: IV Start; Complete Time: 12:32 rn 02/11 12:05 Order name: EKG; Complete Time: 12:06 rn 02/11 12:05 Order name: EKG - Nurse/Tech; Complete Time: 12:32 rn Administered Medications: No medications were administered Disposition: 02/12/20 13:54 Discharged to Home. Impression: Cough, Bronchitis, not specified as acute or chronic. - Condition is Stable. - Discharge Instructions: Acute Bronchitis, Adult, Cough, Adult. - Prescriptions for Zithromax Z- Beto 250 mg Oral Tablet - take 1 tablet by ORAL route as directed for 5 days Day 1 - take two (2) tablets one time. Day 2, 3, 4 , 5 take one (1) tablet once daily.; 6 tablet. Albuterol Sulfate 90 mcg/actuation - inhale 1-2 puff by INHALATION route every 4-6 hours; 1 Inhaler. - Medication Reconciliation Form, Thank You Letter, Antibiotic Education, Prescription Opioid Use form. - Follow up: Private Physician; When: As needed; Reason: Recheck today's complaints, Re-evaluation by your physician. - Problem is new. - Symptoms have improved. Signatures: Dispatcher [employer] [facility] Philippe Shelton MD MD rn Acob, BEHZAD Faust RN ca1 Corrections: (The following items were deleted from the chart) 14:07 11:47 Procalcitonin+C.LAB.BRZ ordered. [facility] 14:08 13:54 02/12/2020 13:54 Discharged to Home. Impression: Cough; Bronchitis, not specified ca1 as acute or chronic. Condition is Stable. Forms are Medication Reconciliation Form, Thank You Letter, Antibiotic Education, Prescription Opioid Use. Follow up: Private Physician; When: As needed; Reason: Recheck today's complaints, Re-evaluation by your physician. Problem is new. Symptoms have improved. rn
--- NOTE | 2020-02-12 13:55 | ER ---
Nurse's Notes [facility] Name: Ashleigh Vogt Age: 59 yrs Sex: Female : 1960 Arrival Date: 02/12/2020 Time: 11:12 Bed 15 Private MD: Diagnosis: Cough;Bronchitis, not specified as acute or chronic Presentation: 02/11 11:45 Chief complaint: Patient states: Chest tightness with SOB and cough since last night. ca1 Coronavirus screen: Client denies travel out of the [place] in the last 14 days. cough unrelated to allergies, shortness of breath, Client presents with at least one sign or symptom that may indicate coronavirus-19. Standard/surgical mask placed on the client. Provider contacted for isolation considerations. Ebola Screen: Patient negative for fever greater than or equal to 101.5 degrees Fahrenheit, and additional compatible Ebola Virus Disease symptoms Patient denies exposure to infectious person. Patient denies travel to an Ebola-affected area in the 21 days before illness onset. No symptoms or risks identified at this time. Initial Sepsis Screen: Does the patient meet any 2 criteria? No. Patient's initial sepsis screen is negative. Does the patient have a suspected source of infection? No. Patient's initial sepsis screen is negative. Risk Assessment: Do you want to hurt yourself or someone else? Patient reports no desire to harm self or others. Onset of symptoms was February 12, 2020. 11:45 Method Of Arrival: Ambulatory ca1 11:45 Acuity: SCARLETT 3 ca1 Historical: - Allergies: 11:47 Topamax; ca1 - Home Meds: 11:47 Ambien 10 mg Oral tab 1 tab nightly [Active]; ca1 - PMHx: 11:47 Back pain; High Cholesterol; insomnia; neck pain; Depression; ca1 - PSHx: 11:47 ; eye surg; Cholecystectomy; ca1 - Immunization history:: Adult Immunizations up to date, Flu vaccine is not up to date. - Social history:: Smoking status: Patient denies any tobacco usage or history of. - Family history:: not pertinent. - Hospitalizations: : No recent hospitalization is reported. Screenin:47 Abuse screen: Denies threats or abuse. Denies injuries from another. Nutritional ca1 screening: No deficits noted. Tuberculosis screening: No symptoms or risk factors identified. Fall Risk IV access (20 points). Assessment: 11:47 General: Appears in no apparent distress. comfortable, Behavior is calm, cooperative, ca1 appropriate for age. Pain: Complains of pain in diaphragm Pain does not radiate. Pain currently is 2 out of 10 on a pain scale. Quality of pain is described as tightness Pain began 1 day ago. Neuro: Level of Consciousness is awake, alert, obeys commands, Oriented to person, place, time, situation. Cardiovascular: Heart tones S1 S2 present Capillary refill < 3 seconds Patient's skin is warm and dry. Respiratory: Reports shortness of breath cough that is since last night Airway is patent Respiratory effort is even, unlabored, Respiratory pattern is regular, symmetrical, Breath sounds are clear bilaterally. GI: Abdomen is round non-distended, Bowel sounds present X 4 quads. Abd is soft and non tender X 4 quads. : No signs and/or symptoms were reported regarding the genitourinary system. EENT: No signs and/or symptoms were reported regarding the EENT system. Derm: Skin is intact, is healthy with good turgor, Skin is pink, warm \T\ dry. Musculoskeletal: Circulation, motion, and sensation intact. Capillary refill < 3 seconds. 12:41 Reassessment: Patient appears in no apparent distress at this time. Patient and/or ca1 family updated on plan of care and expected duration. Pain level reassessed. Patient is alert, oriented x 3, equal unlabored respirations, skin warm/dry/pink. 13:41 Reassessment: Patient appears in no apparent distress at this time. Patient and/or ca1 family updated on plan of care and expected duration. Pain level reassessed. Patient is alert, oriented x 3, equal unlabored respirations, skin warm/dry/pink. Vital Signs: 11:45 BP 128 / 100; Pulse 89; Resp 20 S; Temp 98(O); Pulse Ox 99% on R/A; Weight 127.01 kg ca1 (R); Height 5 ft. 3 in. (160.02 cm); Pain 2/10; 12:41 BP 126 / 102; Pulse 84; Resp 20 S; Pulse Ox 97% on R/A; ca1 13:41 BP 135 / 87; Pulse 70; Resp 18 S; Pulse Ox 97% on R/A; ca1 11:45 Body Mass Index 49.60 (127.01 kg, 160.02 cm) ca1 ED Course: 11:12 Patient arrived in ED. bg2 11:38 Philippe Shelton MD is Attending Physician. rn 11:45 Christianne Ang RN is Primary Nurse. ca1 11:46 Triage completed. ca1 11:47 Arm band placed on right wrist. ca1 11:47 Patient has correct armband on for positive identification. Placed in gown. Bed in low ca1 position. Call light in reach. Side rails up X2. cardiac monitor technician on. Pulse ox on. NIBP on. Warm blanket given. Head of bed elevated. 11:47 No provider procedures requiring assistance completed. Patient maintains SpO2 ca1 saturation greater than 95% on room air. 12:07 XRAY Chest (1 view) In Process Unspecified. EDMS 12:36 Inserted saline lock: 20 gauge in left hand, using aseptic technique. Missed dh4 attempt(s): 22 gauge in right antecubital area. 14:07 IV discontinued, intact, bleeding controlled, No redness/swelling at site. Pressure ca1 dressing applied. Administered Medications: No medications were administered Outcome: 13:54 Discharge ordered by . rn 14:07 Discharged to home ambulatory. ca1 14:07 Condition: stable 14:07 Discharge instructions given to patient, Instructed on discharge instructions, follow up and referral plans. medication usage, Demonstrated understanding of instructions, follow-up care, medications, Prescriptions given X 2. 14:08 Patient left the ED. ca1 Addendum: 02/15/2020 12:24 Addendum: COVID-19 Result: Negative result given to RN to notify pt. Left voice mail. a a5 12:51 Addendum: COVID-19 Result: Negative result given to RN to notify pt. Notified pt of a a5 negative COVID 19 swab results. Pt advised that even with a negative test result they should remain in isolation until symptom free for 3 days without medication. Pt also advised to return to the ED for worsening symptoms. Signatures: Dispatcher [employer] EDMS Philippe Shelton MD MD rn Calderon, Audri RN RN aa5 Denisha Griffin bg2 Christianne Ang RN RN ca1 Garett Mancini 4
[2020-02-12 15:51] VITALS: TEMP 98
[2020-02-12 15:57] VITALS: O2SAT 97
[2020-02-12 15:59] VITALS: BP 135/87
== END 2020-02-12 14:08 | disposition home or self-care (01) ==
LOC: ER 11:09
DX: J40 Bronchitis, not specified as acute or chronic (principal); Z20.828 Contact with and (suspected) exposure to other viral communicable diseases; E78.00 Pure hypercholesterolemia, unspecified; G47.00 Insomnia, unspecified; F32.9 Major depressive disorder, single episode, unspecified
CPT/HCPCS: 93005; 87070; 85025; 80048; 36415; 85379; 87081; 84484; 82728; 83880; 87804 ×2; 71045; 99285; U0002

== ENCOUNTER 2021-05-03 05:45 | Emergency (ER) | payer OTHER ==
[2021-05-03 06:54] LABS: Absolute Lymphocytes (CBC) 1.9 K/uL (0.7-4.9); Hematocrit 36.9 % (36.0-45.0); Lymphocytes % 27.8 % (15.3-44.8); MPV 7.9 fL (7.6-11.3); RBC Red Blood Cell Count 4.09 M/uL (3.86-4.86)
[2021-05-03] MEDS ORDERED: ONDANSETRON 4 MG/2 ML VIAL ONE (07:00)
[2021-05-03] MEDS ORDERED: MORPHINE 4 MG/ML SYR ONE (07:00)
[2021-05-03 07:02] LABS: Protime INR 0.9
[2021-05-03 07:17] LABS: ALT/SGPT 34 U/L (12-78); AST/SGOT 21 U/L (15-37); Albumin 3.1 g/dL (3.4-5.0); Alkaline Phosphatase 125 U/L (45-117); BUN Blood Urea Nitrogen 24 mg/dL (7-18); Bicarbonate 28 mmol/L (21-32); Bilirubin Direct < 0.1 mg/dL (0-0.2); Bilirubin Total 0.2 mg/dL (0.2-1.0); Glucose Level 104 mg/dL (74-106); Magnesium 2.2 mg/dL (1.8-2.4); NT PRO-BNP 131 pg/mL (<125); Potassium 3.9 mmol/L (3.5-5.1); Protein, Total 6.7 g/dL (6.4-8.2); Sodium Level 140 mmol/L (136-145)
--- NOTE | 2021-05-03 07:37 | RAD REPORT ---
EXAM DESCRIPTION: RAD - Chest Single View - 05/03/2021 6:34 am CLINICAL HISTORY: SOB COMPARISON: Chest Single View dated 02/12/2020; Chest Single View dated 06/26/2019; Chest Single View dated 02/12/2018; Chest Single View dated 12/16/2016 FINDINGS: Lines: None. Lungs: No evidence of edema or pneumonia. Pleural: No significant pleural effusions or pneumothorax. Cardiac: Cardiomegaly Bones: No acute fractures. Other: IMPRESSION: No acute cardiopulmonary disease.
--- NOTE | 2021-05-03 09:17 | RAD REPORT ---
EXAM DESCRIPTION: CT - Chest For Pe Angio - 05/03/2021 9:01 am CLINICAL HISTORY: CHEST PAIN COMPARISON: No comparisons FINDINGS: Chest Wall: No suspicious thyroid nodules or pathologic lymphadenopathy. Lungs: No acute abnormality. A few scattered sub 4 mm pulmonary nodules are noted. For example a a couch bpleural nodule in the right lower lobe on image 53, series 10 is present. These are almost certainly benign. Pleura: No significant effusions or pneumothorax. Mediastinum/john: No pathologic lymphadenopathy. Mild circumferential thickened distal esophagus whic h could reflect esophagitis. Pulmonary arteries/Aorta: No filling defect identified. No aortic aneurysm. Heart: No significant pericardial effusion. Normal heart size. Upper abdomen: Cholecystectomy. Probable hepatomegaly though only partially imaged. Bones: No acute abnormality. All CT scans are performed using dose optimization technique as appropriate and may include automated exposure control or mA/KV adjustment according to patient size. IMPRESSION: Negative for pulmonary embolism. No other acute findings are present within the chest.
--- NOTE | 2021-05-03 10:24 | ER ---
Nurse's Notes [facility] Name: Ashleigh Vogt Age: 60 yrs Sex: Female : 1960 Arrival Date: 05/03/2021 Time: 05:47 Bed 13 Private MD: Diagnosis: Back Pain;Chest Pain Presentation: 05/03 05:55 Chief complaint: Patient states: Since last week I have been experiencing back pain, it ll3 felt like a pinched nerve, yesterday it started getting worse and if is difficult to breath and now it feels like the pain radiate to my chest. Coronavirus screen: Vaccine status: Patient reports being unvaccinated. Ebola Screen: No symptoms or risks identified at this time. Initial Sepsis Screen: Does the patient meet any 2 criteria? No. Patient's initial sepsis screen is negative. Does the patient have a suspected source of infection? No. Patient's initial sepsis screen is negative. Risk Assessment: Do you want to hurt yourself or someone else? Patient reports no desire to harm self or others. Onset of symptoms is unknown. 05:55 Method Of Arrival: Ambulatory ll3 05:55 Acuity: SCARLETT 3 ll3 Triage Assessment: 05:58 General: Appears uncomfortable, Behavior is calm, cooperative. Pain: Complains of pain ll3 in left mid back and right mid back Pain radiates to diaphragm Pain currently is 2 out of 10 on a pain scale. at worst was 7 out of 10 on a pain scale. Quality of pain is described as stabbing, Pain began 1 day ago. Is intermittent, Aggravated by increased activity. Neuro: Level of Consciousness is awake, alert, obeys commands, Oriented to person, place, time, situation. Cardiovascular: Patient's skin is warm and dry. Respiratory: Reports shortness of breath Respiratory effort is labored, Breath sounds are clear bilaterally. Onset: The symptoms/episode began/occurred yesterday, the patient has moderate shortness of breath. Derm: Skin is pink, warm \T\ dry. Historical: - Allergies: 05:58 Topamax; ll3 - Home Meds: 05:58 Ambien 10 mg Oral tab 1 tab nightly [Active]; ll3 - PMHx: 05:58 High Cholesterol; insomnia; Depression; neck pain; Arthritis; ll3 - PSHx: 05:58 Cholecystectomy; ll3 - Immunization history:: Client reports having NOT received the Covid vaccine. - Social history:: Smoking status: Patient denies any tobacco usage or history of. Screenin:19 Abuse screen: Denies threats or abuse. Nutritional screening: No deficits noted. st1 Tuberculosis screening: No symptoms or risk factors identified. Fall Risk None identified. No fall in past 12 months (0 pts). No secondary diagnosis (0 pts). IV access (20 points). Ambulatory Aid- None/Bed Rest/Nurse Assist (0 pts). Gait- Normal/Bed Rest/Wheelchair (0 pts) Mental Status- Oriented to own ability (0 pts). Total Toribio Fall Scale indicates No Risk (0-24 pts). Assessment: 06:20 Cardiovascular: Rhythm is sinus rhythm. Respiratory: Airway is patent. st1 07:25 General: Appears comfortable, Behavior is calm, cooperative. Pain: Complains of pain in ww back. Neuro: Level of Consciousness is awake, alert, obeys commands, Oriented to person, place, time, situation. Respiratory: Airway is patent Respiratory effort is even, unlabored, Respiratory pattern is regular, symmetrical. GI: No signs and/or symptoms were reported involving the gastrointestinal system. : No signs and/or symptoms were reported regarding the genitourinary system. Derm: Skin is intact, Skin is pink, warm \T\ dry. 07:30 Reassessment: Patient stated she felt short of breath after receiving morphine. placed ww on 2L NC. . 08:35 Reassessment: Patient appears in no apparent distress at this time. No changes from ww previously documented assessment. Patient and/or family updated on plan of care and expected duration. Pain level reassessed. Patient states feeling better. 09:28 Reassessment: Patient appears in no apparent distress at this time. No changes from ww previously documented assessment. Patient and/or family updated on plan of care and expected duration. Pain level reassessed. returned from Emir MICHAEL at bedside.. Vital Signs: 05:55 BP 110 / 62; Pulse 79; Resp 16; Temp 97.3(TE); Pulse Ox 98% on R/A; Weight 127.01 kg ll3 (R); Height 5 ft. 3 in. (160.02 cm) (R); Pain 2/10; 06:21 BP 120 / 59; Pulse 77; Resp 21; Pulse Ox 96% on R/A; st1 07:15 BP 95 / 60; Pulse 73; Resp 12; Pulse Ox 87% on R/A; ww 07:45 BP 122 / 66; Pulse 77; Resp 17; Pulse Ox 93% on 2 lpm NC; ww 08:30 BP 135 / 67; Pulse 73; Resp 15; Pulse Ox 93% on 2 lpm NC; ww 09:30 BP 110 / 58; Pulse 75; Resp 16; Pulse Ox 99% ; ww 10:29 BP 121 / 61; Pulse 71; Resp 18; Pulse Ox 94% ; ww 05:55 Body Mass Index 49.60 (127.01 kg, 160.02 cm) ll3 Vitals: 06:21 Cardiac Rhythm Assessment Regular Sinus rhythm. st1 ED Course: 05:47 Patient arrived in ED. wm 05:58 Triage completed. ll3 05:58 Arm band placed on. ll3 06:10 Emir Mayer PA is PHCP. [facility] 06:10 Khurram Carballo MD is Attending Physician. [facility] 06:11 Kimberly Mcconnell, BEHZAD is Primary Nurse. st1 06:20 Patient has correct armband on for positive identification. Placed in gown. Bed in low st1 position. Side rails up X 1. compliance advisor on. Pulse ox on. NIBP on. Verbal reassurance given. 06:34 XRAY Chest (1 view) In Process Unspecified. EDMS 06:43 Inserted saline lock: 20 gauge in left antecubital area, using aseptic technique. st1 06:43 D-Dimer Sent. st1 06:43 CBC with Automated Diff Sent. st1 06:43 Liver (Hepatic) Function Sent. st1 06:43 Basic Metabolic Panel Sent. st1 06:43 Basic Metabolic Panel Sent. st1 06:43 CBC with Diff Sent. st1 06:43 LFT's Sent. st1 06:43 Troponin HS Sent. st1 06:43 Magnesium Sent. st1 06:43 PT-INR Sent. st1 06:43 NT PRO-BNP Sent. st1 09:01 CT Chest For PE Angio In Process Unspecified. EDMS 10:39 No provider procedures requiring assistance completed. intact, bleeding controlled, No ww redness/swelling at site. Pressure dressing applied. Administered Medications: 06:58 Drug: morphine 4 mg Route: IVP; Site: left antecubital; st1 06:58 Drug: Zofran (Ondansetron) 4 mg Route: IVP; Site: left antecubital; st1 Outcome: 10:24 Discharge ordered by . salazar 10:39 Discharged to home ambulatory. duc 10:39 Condition: stable 10:39 Discharge instructions given to patient, Instructed on discharge instructions, follow up and referral plans. medication usage, safety practices, Demonstrated understanding of instructions, follow-up care, medications, Prescriptions given X 2. 10:45 Patient left the ED. ww Signatures: Dispatcher [employer] EDMS Emir Mayer PA PA jmm Marsh, Wendy wm Loubet, Lynsea RN RN ll3 Yaima Lucero RN RN ww Kimberly Mcconnell, RN RN st1
--- NOTE | 2021-05-03 10:24 | EDPHYS ---
Physician Documentation [facility] Name: Ashleigh Vogt Age: 60 yrs Sex: Female : 1960 Arrival Date: 05/03/2021 Time: 05:47 Bed 13 Private MD: ROHIT Physician Khurram Carballo HPI: 05/03 06:16 This 60 yrs old Female presents to ER via Ambulatory with complaints of Breathing jmm Difficulty, Chest Pain > 30 y/o, Back Pain. 06:16 The patient has shortness of breath with light activity. Onset: The symptoms/episode jmm began/occurred gradually, 1 week(s) ago. Duration: The symptoms are continuous, and are steadily getting worse. The patient's shortness of breath is aggravated by movement. Associated signs and symptoms: Pertinent positives: chest pain, sob, Pertinent negatives: non-productive cough, productive cough. This is a 60 year old female with a history of hlp, insomnia, depression, neck pain, arthritis that presents to the ED with complantsof of upper back pain which radiates into the right side of her chest. Complains of sob, worsen with movement and deep inspiration. . Historical: - Allergies: 05:58 Topamax; ll3 - Home Meds: 05:58 Ambien 10 mg Oral tab 1 tab nightly [Active]; ll3 - PMHx: 05:58 High Cholesterol; insomnia; Depression; neck pain; Arthritis; ll3 - PSHx: 05:58 Cholecystectomy; ll3 - Immunization history:: Client reports having NOT received the Covid vaccine. - Social history:: Smoking status: Patient denies any tobacco usage or history of. ROS: 06:16 Constitutional: Negative for fever, chills, and weight loss. jmm 06:16 Cardiovascular: Positive for chest pain. 06:16 Respiratory: Positive for shortness of breath. 06:16 Back: Positive for pain with movement. 06:16 All other systems are negative. Exam: 06:16 Head/Face: atraumatic. Eyes: EOMI, no conjunctival erythema appreciated ENT: Moist jmm Mucus Membranes Neck: Trachea midline, Supple Chest/axilla: Normal chest wall appearance and motion. 06:16 Constitutional: The patient appears alert, awake, anxious, uncomfortable. 06:16 Cardiovascular: Exam negative for Rate: normal, Rhythm: regular, Pulses: no pulse deficits are appreciated. 06:16 Respiratory: the patient does not display signs of respiratory distress, Respirations: normal, Breath sounds: are clear throughout. 06:16 Abdomen/GI: Inspection: abdomen appears normal, Bowel sounds: normal, Palpation: abdomen is soft and non-tender, in all quadrants. 06:16 Back: right sided paraspinal thoracic pain on palpation. 06:16 Musculoskeletal/extremity: ROM: intact in all extremities. 06:16 Skin: Appearance: Color: normal in color. 06:16 Neuro: Orientation: is normal, Mentation: is normal, Memory: is normal. 06:16 Psych: Behavior/mood is pleasant, cooperative, Affect is Vital Signs: 05:55 BP 110 / 62; Pulse 79; Resp 16; Temp 97.3(TE); Pulse Ox 98% on R/A; Weight 127.01 kg ll3 (R); Height 5 ft. 3 in. (160.02 cm) (R); Pain 2/10; 06:21 BP 120 / 59; Pulse 77; Resp 21; Pulse Ox 96% on R/A; st1 07:15 BP 95 / 60; Pulse 73; Resp 12; Pulse Ox 87% on R/A; ww 07:45 BP 122 / 66; Pulse 77; Resp 17; Pulse Ox 93% on 2 lpm NC; ww 08:30 BP 135 / 67; Pulse 73; Resp 15; Pulse Ox 93% on 2 lpm NC; ww 09:30 BP 110 / 58; Pulse 75; Resp 16; Pulse Ox 99% ; ww 10:29 BP 121 / 61; Pulse 71; Resp 18; Pulse Ox 94% ; ww 05:55 Body Mass Index 49.60 (127.01 kg, 160.02 cm) ll3 MDM: 06:16 Patient medically screened. tri 10:22 Data reviewed: vital signs, nurses notes. Counseling: I had a detailed discussion with salazar the patient and/or guardian regarding: the historical points, exam findings, and any diagnostic results supporting the discharge/admit diagnosis, lab results, radiology results, the need for outpatient follow up, to return to the emergency department if symptoms worsen or persist or if there are any questions or concerns that arise at home. ED course: Pain relieved in the ED. Labs/imaging studies unremarkable. Advised to follow up with pcp and otherwise given strict return precautions. Patient understood and agrees with the plan of care. . 05/03 06:19 Order name: Basic Metabolic Panel [facility] 05/03 06:19 Order name: CBC with Diff [facility] 05/03 06:19 Order name: LFT's [facility] 05/03 06:19 Order name: Magnesium; Complete Time: 07:24 [facility] 05/03 06:19 Order name: NT PRO-BNP; Complete Time: 07:24 [facility] 05/03 06:19 Order name: PT-INR; Complete Time: 07:03 [facility] 05/03 06:19 Order name: Troponin HS; Complete Time: 07:24 [facility] 05/03 06:19 Order name: XRAY Chest (1 view); Complete Time: 07:38 [facility] 05/03 06:20 Order name: Basic Metabolic Panel; Complete Time: 07:24 [facility] 05/03 06:20 Order name: CBC with Automated Diff; Complete Time: 07:01 [facility] 05/03 06:20 Order name: Liver (Hepatic) Function; Complete Time: 07:24 [facility] 05/03 06:38 Order name: D-Dimer; Complete Time: 08:36 [facility] 05/03 08:35 Order name: CT Chest For PE Angio; Complete Time: 09:17 [facility] 05/03 09:33 Order name: Troponin High Sensitivity; Complete Time: 10:14 [facility] 05/03 06:19 Order name: EKG; Complete Time: 06:20 [facility] 05/03 06:19 Order name: Cardiac monitoring; Complete Time: 06:21 [facility] 05/03 06:19 Order name: EKG - Nurse/Tech; Complete Time: 06:21 [facility] 05/03 06:19 Order name: IV Saline Lock; Complete Time: 06:43 [facility] 05/03 06:19 Order name: Labs collected and sent; Complete Time: 06:43 [facility] 05/03 06:19 Order name: O2 Per Protocol; Complete Time: 06:21 [facility] 05/03 06:19 Order name: O2 Sat Monitoring; Complete Time: 06:21 jmm Administered Medications: 06:58 Drug: morphine 4 mg Route: IVP; Site: left antecubital; st1 06:58 Drug: Zofran (Ondansetron) 4 mg Route: IVP; Site: left antecubital; st1 Disposition Summary: 05/03/21 10:24 Discharge Ordered Location: Home jm Condition: Stable jmm Diagnosis - Back Pain jmm - Chest Pain [facility] Followup: jmm - With: Private Physician - When: 2 - 3 days - Reason: Recheck today's complaints, Continuance of care, Re-evaluation by your physician Discharge Instructions: - Discharge Summary Sheet jmm - Nonspecific Chest Pain, Adult jmm - Costochondritis jmm - Thoracic Strain jm Forms: - Medication Reconciliation Form [facility] - Thank You Letter [facility] - Antibiotic Education m - Prescription Opioid Use jm Prescriptions: - Ibuprofen 800 mg Oral Tablet - take 1 tablet by ORAL route every 12 hours As needed take with food; 20 tablet; jmm Refills: 0, Product Selection Permitted - orphenadrine citrate 100 mg Oral Tablet Sustained Release - take 1 tablet by ORAL route 2 times per day As needed; 20 tablet; Refills: 0, jmm Product Selection Permitted Signatures: Dispatcher [employer] Khurram Stanton MD MD cha Mickail, Joel, PA PA Catalino Krishnan, RN RN ll3 Kimberly Mcconnell RN RN st1
[2021-05-03 11:01] VITALS: TEMP 97.3
[2021-05-03 11:11] VITALS: BP 121/61; O2SAT 94
--- NOTE | 2021-05-03 13:03 | EKG ---
Test Date: 2021-05-03 Test Time: 06:06:47 Deputy City Clerk: MARY MEASUREMENT RESULTS: Intervals: Rate: 76 MN: 160 QRSD: 76 QT: 382 QTc: 429 [place]: P: 35 MN: 160 QRS: 37 T: 66 INTERPRETIVE STATEMENTS: Normal sinus rhythm Normal ECG Compared to ECG 02/12/2020 12:28:33 ST (T wave) deviation no longer present Electronically Signed On 05-03-21 13:02:44 [employer] by Dell Manriquez
== END 2021-05-03 10:45 | disposition home or self-care (01) ==
LOC: ER 05:45
DX: R07.9 Chest pain, unspecified (principal); M54.9 Dorsalgia, unspecified; Z88.8 Allergy status to other drugs, medicaments and biological substances
CPT/HCPCS: 93005; 85025; 80048; 36415; 83735; 85610; 85379; 80076; 84484 ×2; 83880; 71275; 71045; 96375; 96374; 99284; Q9967; J2405

== ENCOUNTER 2021-08-23 08:06 | Emergency (ER) | payer OTHER ==
[2021-08-23 08:32] LABS: Urine Blood Negative (Negative); Urine Glucose Negative (Negative); Urine Protein Negative (Negative); Urine Specific Gravity 1.025 (1.005-1.030); Urine pH 5.5 (5.0-7.0)
--- NOTE | 2021-08-23 09:22 | RAD REPORT ---
EXAM DESCRIPTION: CT - Head Brain Wo Cont - 08/23/2021 9:06 am CLINICAL HISTORY: Ataxia COMPARISON: None. TECHNIQUE: Computed axial tomography of the head was obtained. IV contrast was not requested. All CT scans are performed using dose optimization technique as appropriate and may include automated exposure control or mA/KV adjustment according to patient size. FINDINGS: An intracranial bleed is not seen . The ventricles are normal in caliber. No significant hypodense areas within the brain visualized No extra-axial fluid collection is noted. Fluid within the sinuses/ mastoids is not seen. IMPRESSION: No acute intracranial abnormality is seen. If patient's symptoms persist MRI of the bra in would be recommended.
--- NOTE | 2021-08-23 09:59 | RAD REPORT ---
EXAM DESCRIPTION: [place] Single View08/23/2021 9:39 am CLINICAL HISTORY: Cough COMPARISON: April 2021 FINDINGS: The lungs appear clear of acute infiltrate. The heart is borderline enlarged IMPRESSION: No acute abnormalities displayed
[2021-08-23 10:03] LABS: Protime INR 0.88
[2021-08-23 10:20] LABS: ALT/SGPT 31 U/L (12-78); Albumin 3.4 g/dL (3.4-5.0); Alkaline Phosphatase 124 U/L (45-117); BUN Blood Urea Nitrogen 23 mg/dL (7-18); Bicarbonate 22 mmol/L (21-32); Bilirubin Total 0.2 mg/dL (0.2-1.0); Glomerular Filtration Rate 59 ml/min (=/>90); Glucose Level 93 mg/dL (74-106); NT PRO-BNP 48 pg/mL (<125); Protein, Total 7.4 g/dL (6.4-8.2); Sodium Level 136 mmol/L (136-145); Troponin High Sensitivity 6.5 pg/mL (<58.9)
[2021-08-23 10:24] LABS: AST/SGOT 21 U/L (15-37); Bilirubin Direct < 0.1 mg/dL (0-0.2); Magnesium 2.3 mg/dL (1.8-2.4); Potassium 4.1 mmol/L (3.5-5.1)
[2021-08-23 10:32] LABS: Absolute Lymphocytes (CBC) 2.3 K/uL (0.7-4.9); Hematocrit 38.1 % (36.0-45.0); Lymphocytes % 28.2 % (15.3-44.8); MPV 7.6 fL (7.6-11.3); RBC Red Blood Cell Count 4.35 M/uL (3.86-4.86)
--- NOTE | 2021-08-23 10:58 | EDPHYS ---
Physician Documentation [facility] Name: Ashleigh Vogt Age: 60 yrs Sex: Female : 1960 Arrival Date: 08/23/2021 Time: 08:08 Bed 26 Private MD: Ronak Kendall E ED Physician Khurram Carballo HPI: 08/23 09:15 This 60 yrs old Female presents to ER via Wheelchair with complaints of tri Weakness - legs. 09:15 last night both legs weak , difficult to walk. Onset: The symptoms/episode tri began/occurred last night. Severity of symptoms: At their worst the symptoms were mild in the emergency department the symptoms are unchanged. The patient has not experienced similar symptoms in the past. Historical: - Allergies: 08:17 Topamax; tw2 - Home Meds: 08:17 Ambien 10 mg Oral tab 1 tab nightly [Active]; mirtazapine 7.5 mg Oral tab 1 tab once tw2 daily [Active]; Melatonin Oral [Active]; atorvastatin 20 mg oral tab 1 tab once daily [Active]; "3 bp medicines" [Active]; - PMHx: 08:17 Arthritis; Back pain; Depression; High Cholesterol; insomnia; neck pain; tw2 - PSHx: 08:17 Cholecystectomy; tw2 - Immunization history:: Client reports having NOT received the Covid vaccine. - Social history:: Smoking status: Patient denies any tobacco usage or history of. Patient uses alcohol, occasionally. - Family history:: not pertinent. ROS: 09:15 Constitutional: Negative for fever, chills, and weight loss, Eyes: Negative for injury, tri pain, redness, and discharge, ENT: Negative for injury, pain, and discharge, Neck: Negative for injury, pain, and swelling, Cardiovascular: Negative for chest pain, palpitations, and edema, Respiratory: Negative for shortness of breath, cough, wheezing, and pleuritic chest pain, Abdomen/GI: Negative for abdominal pain, nausea, vomiting, diarrhea, and constipation, Back: Negative for injury and pain, : Negative for injury, bleeding, discharge, and swelling, MS/Extremity: Negative for injury and deformity, Psych: Negative for depression, anxiety, suicide ideation, homicidal ideation, and hallucinations, Allergy/Immunology: Negative for hives, rash, and allergies, Endocrine: Negative for neck swelling, polydipsia, polyuria, polyphagia, and marked weight changes, Hematologic/Lymphatic: Negative for swollen nodes, abnormal bleeding, and unusual bruising. 09:15 MS/extremity: Positive for weakness, no drift. 09:15 Skin: 09:15 Neuro: Positive for weakness, of the right leg and left leg. Exam: 09:15 Constitutional: This is a well developed, well nourished patient who is awake, alert, tri and in no acute distress. Head/Face: Normocephalic, atraumatic. Eyes: Pupils equal round and reactive to light, extra-ocular motions intact. Lids and lashes normal. Conjunctiva and sclera are non-icteric and not injected. Cornea within normal limits. Periorbital areas with no swelling, redness, or edema. ENT: Nares patent. No nasal discharge, no septal abnormalities noted. Tympanic membranes are normal and external auditory canals are clear. Oropharynx with no redness, swelling, or masses, exudates, or evidence of obstruction, uvula midline. Mucous membranes moist. Neck: Trachea midline, no thyromegaly or masses palpated, and no cervical lymphadenopathy. Supple, full range of motion without nuchal rigidity, or vertebral point tenderness. No Meningismus. Chest/axilla: Normal chest wall appearance and motion. Nontender with no deformity. No lesions are appreciated. Cardiovascular: Regular rate and rhythm with a normal S1 and S2. No gallops, murmurs, or rubs. Normal PMI, no JVD. No pulse deficits. Respiratory: Lungs have equal breath sounds bilaterally, clear to auscultation and percussion. No rales, rhonchi or wheezes noted. No increased work of breathing, no retractions or nasal flaring. Abdomen/GI: Soft, non-tender, with normal bowel sounds. No distension or tympany. No guarding or rebound. No evidence of tenderness throughout. Back: No spinal tenderness. No costovertebral tenderness. Full range of motion. Skin: Warm, dry with normal turgor. Normal color with no rashes, no lesions, and no evidence of cellulitis. MS/ Extremity: Pulses equal, no cyanosis. Neurovascular intact. Full, normal range of motion. Neuro: Awake and alert, GCS 15, oriented to person, place, time, and situation. Cranial nerves II-XII grossly intact. Motor strength 5/5 in all extremities. Sensory grossly intact. Cerebellar exam normal. Normal gait. Psych: Awake, alert, with orientation to person, place and time. Behavior, mood, and affect are within normal limits. 09:58 ECG was reviewed by the Attending Physician. [facility] Vital Signs: 08:14 BP 114 / 61; Pulse 71; Resp 17; Temp 97.9(TE); Pulse Ox 96% on R/A; Weight 127.01 kg tw2 (R); Height 5 ft. 3 in. (160.02 cm); Pain 0/10; 11:36 BP 130 / 60 Supine; Pulse 60; Resp 18; ww 11:36 BP 128 / 90 Sitting; Pulse 77; Resp 18; ww 11:36 BP 124 / 75 Standing; Pulse 89; Resp 18; ww 08:14 Body Mass Index 49.60 (127.01 kg, 160.02 cm) tw2 NIH Stroke Scale Scores: 09:15 NIHSS Score: 0 tri MDM: 08:16 Patient medically screened. [facility] 09:59 Data reviewed: vital signs, nurses notes, lab test result(s), EKG, radiologic studies, tri CT scan, plain films. Data interpreted: lecturer in computer science: rate is 71 beats/min, rhythm is regular, Pulse oximetry: on room air is 96 %. Test interpretation: by ED physician or midlevel provider: ECG, plain radiologic studies. Counseling: I had a detailed discussion with the patient and/or guardian regarding: the historical points, exam findings, and any diagnostic results supporting the discharge/admit diagnosis, lab results, radiology results, the need for outpatient follow up, for definitive care, a family practitioner, a neurologist. 08/23 08:33 Order name: Urine Dipstick-Ancillary; Complete Time: 09:32 EDMS 08/23 08:44 Order name: Basic Metabolic Panel; Complete Time: 10:57 tri 08/23 08:44 Order name: CBC with Diff; Complete Time: 10:57 tri 08/23 08:44 Order name: LFT's; Complete Time: 10:57 tri 08/23 08:44 Order name: Magnesium; Complete Time: 10:57 tri 08/23 08:44 Order name: NT PRO-BNP; Complete Time: 10:57 tri 08/23 08:44 Order name: PT-INR; Complete Time: 10:21 [facility] 08/23 08:44 Order name: Troponin HS; Complete Time: 10:57 [facility] 08/23 08:44 Order name: XRAY Chest (1 view); Complete Time: 10:21 [facility] 08/23 08:44 Order name: EKG; Complete Time: 08:45 [facility] 08/23 08:44 Order name: CT Head Brain wo Cont tri 08/23 08:49 Order name: Head Brain Wo Cont; Complete Time: 09:32 EDMS 08/23 08:44 Order name: Cardiac monitoring; Complete Time: 09:56 [facility] 08/23 08:44 Order name: EKG - Nurse/Tech; Complete Time: 09:56 [facility] 08/23 08:44 Order name: Labs collected and sent; Complete Time: 09:56 [facility] 08/23 08:44 Order name: O2 Per Protocol; Complete Time: 09:56 [facility] 08/23 08:44 Order name: O2 Sat Monitoring; Complete Time: 09:56 [facility] 08/23 10:09 Order name: Labs - recollect needed: recollect lavender top/ hemolyzed; Complete Time: eb 11:08/23 10:58 Order name: Orthostatics; Complete Time: 11:36 [facility] 08/23 10:58 Order name: Misc. Order: ambulate with assistance; Complete Time: 11:36 [facility] EC:58 Rate is 66 beats/min. Rhythm is regular. QRS [place] is Normal. [place] interval is normal. QRS tri interval is normal. QT interval is normal. No Q waves. T waves are Normal. No ST changes noted. Clinical impression: NSR w/ Non-specific ST/T Changes and No evidence of ischemia. Interpreted by me. Reviewed by me. Administered Medications: :56 Not Given (Patient Refused): NS 0.9% 1000 ml IV at 1 bolus Per protocol; 1000 mL bolus ww Disposition Summary: 08/23/21 10:58 Discharge Ordered Location: Home tri Problem: new tri Symptoms: have improved tri Condition: Stable tri Diagnosis - Weakness tri - Obesity, unspecified tri Followup: tri - With: - When: 2 - 3 days - Reason: Recheck today's complaints, Continuance of care, Re-evaluation by your physician Followup: tri - With: - When: 2 - 3 days - Reason: Recheck today's complaints, Re-evaluation by your physician Discharge Instructions: - Discharge Summary Sheet tri - Obesity, Adult tri - Weakness tri - Weakness, [id number] tri - Obesity, Adult, [id number] tri Forms: - Medication Reconciliation Form tri - Thank You Letter tri - Antibiotic Education tri - Prescription Opioid Use tri NIH Stroke Scale - NIH Stroke Score Date: 08/23/2021 Time: 09:15 Total Score = 0 1a. Level of Consciousness (LOC) - 0(Alert) 1b. Level of Consciousness (LOC) (Month \\T\\ Age) - 0(Both) 1c. LOC Commands (Open \\T\\ Closes Eyes/Donor Services Technician) - 0(Both) 2. Best Gaze (Lateral Gaze Paresis) - 0(Normal) 3. Visual Field Loss - 0(No visual loss) 4. Facial Palsy - 0(Normal) 5a. Left Arm: Motor (10-second hold) - 0(No drift) 5b. Right Arm: Motor (10-second hold) - 0(No drift) 6a. Left Leg: Motor (5-second hold - always test supine) - 0(No drift) 6b. Right Leg: Motor (5-second hold - always test supine) - 0(No drift) 7. Limb Ataxia (finger/nose \\T\\ heel/teran - test with eyes open) - 0(Absent) 8. Sensory Loss (pinprick arms/legs/face) - 0(Normal) 9. Best Language: Aphasia (description/naming/reading) - 0(No aphasia) 10. Dysarthria (speech clarity - read or repeat words) - 0(Normal) 11. Extinction and Inattention (visual/tactile/auditory/spatial/personal) - 0(No abnormality) Initials: tri Signatures: Dispatcher [employer] Khurram Stanton MD MD cha Wise, Tara, RN RN tw2 Gris Dan Whitney RN ww Corrections: (The following items were deleted from the chart) 09:56 08:44 IV Saline Lock ordered. tri xavier
--- NOTE | 2021-08-23 10:58 | ER ---
Nurse's Notes [facility] Name: Ashleigh Vogt Age: 60 yrs Sex: Female : 1960 Arrival Date: 08/23/2021 Time: 08:08 Bed 26 Private MD: Ronak Kendall E Diagnosis: Weakness;Obesity, unspecified Presentation: 08/23 08:14 Chief complaint: Patient states: i got up out of my chair last night and my legs just tw2 started wobbling and i couldn't walk. i was just wobbling around then i woke up at 3am to go to the restroom and i was having to hold on to the gage to go to the bathroom. i can just barely walk my legs are just wobbling. i have had a knee replacement in my right knee but i have had some pain in my left knee. i just couldn't straighten them up. Chief complaint: Patient states: i can stand up but if i am going to walk i have to hang on to something. Coronavirus screen: At this time, the client does not indicate any symptoms associated with coronavirus-19. Ebola Screen: Patient denies travel to an Ebola-affected area in the 21 days before illness onset. Initial Sepsis Screen: Does the patient meet any 2 criteria? No. Patient's initial sepsis screen is negative. Does the patient have a suspected source of infection? No. Patient's initial sepsis screen is negative. Risk Assessment: Do you want to hurt yourself or someone else? Patient reports no desire to harm self or others. Onset of symptoms was August 22, 2021. 08:14 Method Of Arrival: Wheelchair tw2 08:14 Acuity: SCARLETT 3 tw2 Triage Assessment: 08:18 General: Appears in no apparent distress. obese, Behavior is calm, cooperative, tw2 appropriate for age. Pain: Complains of pain in left knee. Neuro: Level of Consciousness is awake, alert, obeys commands, Oriented to person, place, time, situation. Historical: - Allergies: 08:17 Topamax; tw2 - Home Meds: 08:17 Ambien 10 mg Oral tab 1 tab nightly [Active]; mirtazapine 7.5 mg Oral tab 1 tab once tw2 daily [Active]; Melatonin Oral [Active]; atorvastatin 20 mg oral tab 1 tab once daily [Active]; "3 bp medicines" [Active]; - PMHx: 08:17 Arthritis; Back pain; Depression; High Cholesterol; insomnia; neck pain; tw2 - PSHx: 08:17 Cholecystectomy; tw2 - Immunization history:: Client reports having NOT received the Covid vaccine. - Social history:: Smoking status: Patient denies any tobacco usage or history of. Patient uses alcohol, occasionally. - Family history:: not pertinent. Screenin:23 Abuse screen: Denies threats or abuse. Nutritional screening: No deficits noted. tw2 Tuberculosis screening: No symptoms or risk factors identified. Fall Risk None identified. Assessment: 08:22 Reassessment: pt given urine specimen cup for sample at this time. able to stand c/o tw2 left knee pain. 09:00 General: Appears in no apparent distress. comfortable, Behavior is cooperative. Pain: ww Denies pain. Neuro: Level of Consciousness is awake, alert, obeys commands, Oriented to person, place, time, situation, Moves all extremities. Weakness Speech is normal. Cardiovascular: Patient's skin is warm and dry. Respiratory: Airway is patent Respiratory effort is even, unlabored, Respiratory pattern is regular, symmetrical. GI: No signs and/or symptoms were reported involving the gastrointestinal system. Derm: Musculoskeletal: Reports weakness in right leg and left leg. 10:15 Reassessment: Patient appears in no apparent distress at this time. No changes from previously documented assessment. Patient and/or family updated on plan of care and expected duration. Pain level reassessed. Patient is alert, oriented x 3, equal unlabored respirations, skin warm/dry/pink. 11:38 Reassessment: Patient appears in no apparent distress at this time. No changes from previously documented assessment. Patient and/or family updated on plan of care and expected duration. Pain level reassessed. Patient is alert, oriented x 3, equal unlabored respirations, skin warm/dry/pink. ambulated. Dr. Carballo watched patient ambulate. Vital Signs: 08:14 BP 114 / 61; Pulse 71; Resp 17; Temp 97.9(TE); Pulse Ox 96% on R/A; Weight 127.01 kg tw2 (R); Height 5 ft. 3 in. (160.02 cm); Pain 0/10; 11:36 BP 130 / 60 Supine; Pulse 60; Resp 18; ww 11:36 BP 128 / 90 Sitting; Pulse 77; Resp 18; ww 11:36 BP 124 / 75 Standing; Pulse 89; Resp 18; ww 08:14 Body Mass Index 49.60 (127.01 kg, 160.02 cm) tw2 NIH Stroke Scale Scores: 09:15 NIHSS Score: 0 [facility] ED Course: 08:08 Patient arrived in ED. as 08:09 Ronak Kendall MD is Private Physician. as 08:16 Khurram Carballo MD is Attending Physician. tri 08:16 Triage completed. tw2 08:16 Arm band placed on. tw2 08:35 Yaima Lucero, BEHZAD is Primary Nurse. ww 09:08 Head Brain Wo Cont In Process Unspecified. EDMS 09:41 XRAY Chest (1 view) In Process Unspecified. EDMS 10:58 Ronak Kendall MD is Referral Physician. tri 10:58 Arturo Young MD is Referral Physician. tri 11:38 No provider procedures requiring assistance completed. Patient did not have IV access ww during this emergency room visit. Administered Medications: 09:56 Not Given (Patient Refused): NS 0.9% 1000 ml IV at 1 bolus Per protocol; 1000 mL bolus ww Medication: 08:23 VIS not applicable for this client. tw2 Outcome: 10:58 Discharge ordered by . [facility] 11:38 Discharged to home ambulatory. 11:38 Condition: stable 11:38 Discharge instructions given to patient, Instructed on discharge instructions, follow up and referral plans. safety practices, Demonstrated understanding of instructions, follow-up care, crutch walking. 11:39 Patient left the ED. NIH Stroke Scale - NIH Stroke Score Date: 08/23/2021 Time: 09:15 Total Score = 0 1a. Level of Consciousness (LOC) - 0(Alert) 1b. Level of Consciousness (LOC) (Month \\T\\ Age) - 0(Both) 1c. LOC Commands (Open \\T\\ Closes Eyes/Quality Control Tech Raw Materials) - 0(Both) 2. Best Gaze (Lateral Gaze Paresis) - 0(Normal) 3. Visual Field Loss - 0(No visual loss) 4. Facial Palsy - 0(Normal) 5a. Left Arm: Motor (10-second hold) - 0(No drift) 5b. Right Arm: Motor (10-second hold) - 0(No drift) 6a. Left Leg: Motor (5-second hold - always test supine) - 0(No drift) 6b. Right Leg: Motor (5-second hold - always test supine) - 0(No drift) 7. Limb Ataxia (finger/nose \\T\\ heel/teran - test with eyes open) - 0(Absent) 8. Sensory Loss (pinprick arms/legs/face) - 0(Normal) 9. Best Language: Aphasia (description/naming/reading) - 0(No aphasia) 10. Dysarthria (speech clarity - read or repeat words) - 0(Normal) 11. Extinction and Inattention (visual/tactile/auditory/spatial/personal) - 0(No abnormality) Initials: tri Signatures: Dispatcher [employer] Khurram Stanton MD MD cha Martinez, Diann Pride, RN RN tw2 Yaima Lucero RN RN ww
[2021-08-23 11:48] VITALS: TEMP 97.9; O2SAT 96
[2021-08-23 11:51] VITALS: BP 124/75
--- NOTE | 2021-08-24 09:13 | EKG ---
Test Date: 2021-08-23 Test Time: 09:28:23 Physical Therapy Aide: DEISY MEASUREMENT RESULTS: Intervals: Rate: 66 CA: 166 QRSD: 78 QT: 404 QTc: 423 [place]: P: 25 CA: 166 QRS: 42 T: 79 INTERPRETIVE STATEMENTS: Normal sinus rhythm Nonspecific T wave abnormality Abnormal ECG Compared to ECG 05/03/2021 06:06:47 T-wave abnormality now present Electronically Signed On 08-24-21 09:10:49 CDT by Dell Manriquez
== END 2021-08-23 11:39 | disposition home or self-care (01) ==
LOC: ER 08:06
DX: R53.1 Weakness (principal); E66.8 Other obesity; Z68.42 Body mass index [BMI] 45.0-49.9, adult; G47.00 Insomnia, unspecified; Z88.8 Allergy status to other drugs, medicaments and biological substances
CPT/HCPCS: 36415; 70450; 71045; 80048; 80076; 81003; 83735; 83880; 84484; 85025; 85610; 93005; 99283

== ENCOUNTER 2024-07-14 15:15 | Observation (INO) | payer OTHER ==
--- OUTSIDE RECORDS SUMMARY | 2024-07-14 15:18 | XMS REPORT | Continuity of Care Document ---
Author Name Unknown Address [address] [address] [address] [place] [address] [facility] Address [address] [place] [address] Care Team Providers Care White Kid Buffer Name Role Phone Tyler_ Attending Clinician Sinan Su Attending Clinician [phone] Tyler_ Admitting Clinician Sarthak peña Payers Payer Name Policy Type Policy Number Effective Date Expirati on Date Source [place]IC[place]: [employer] [id number] 2012 00:00:00 Problems Condition Name Condition Details Condition Category Status Onset Date Resolution Date Last Treatment Date Treating Clinician Comments Source Osteoarthr itis of left knee joint Osteoarthr itis of Left Knee Joint Problem Active 10-18 00:00: 00 [facility] Allergies, Adverse Reactions, Alerts Allergy Name Allergy Type Status Severity Reaction(s) Onset Date Inactive Date Treating Clinician Comments Source Topamax Allergy to substanc e Active [facility] Social History Smoking Status Start Date Stop Date Source Never Smoker [facility] Medications Ordered Medication Name Filled Medication Name Start Date Stop Date Current Medication? Ordering Clinician Indication Dosage Frequency Signature (SIG) Comments Components Source amlodipine 10 mg tablet amlodipine 10 mg tablet No amlodipine 10 mg tablet [facility] atorvastati n 10 mg tablet atorvastati n 10 mg tablet No atorvastat in 10 mg tablet [facility] ibuprofen 800 mg tablet TAKE 1 TABLET BY MOUTH EVERY 12 HOURS NEEDED FOR PAIN CONTROL ibuprofen 800 mg tablet TAKE 1 TABLET BY MOUTH EVERY 12 HOURS NEEDED FOR PAIN CONTROL No ibuprofen 800 mg tablet TAKE 1 TABLET BY MOUTH EVERY 12 HOURS NEEDED FOR PAIN CONTROL [facility] meloxicam 15 mg tablet Take 1 tablet every day by oral route. meloxicam 15 mg tablet Take 1 tablet every day by oral route. No 1 Q1D meloxicam 15 mg tablet Take 1 tablet every day by oral route. [facility] venlafaxine ER 37.5 mg capsule,ext ended release 24 hr venlafaxine ER 37.5 mg capsule,ext ended release 24 hr No venlafaxin e ER 37.5 mg capsule,ex tended release 24 hr [facility] venlafaxine ER 75 mg capsule,ext ended release 24 hr venlafaxine ER 75 mg capsule,ext ended release 24 hr No venlafaxin e ER 75 mg capsule,ex tended release 24 hr [facility] Vital Signs Vital Name Observation Time Observation Value Comments S ource Height 2021-10-18 00:00:00 63 [in_i] [facility] BMI (Body Mass Index) 2021-10-18 00:00:00 50.7 kg/m2 [facility] Body Weight 2021-10-18 00:00:00 286 [lb_av] Oswal[facility] Procedures Procedure Date / Time Performed Performing Laura thapa Source XR, knee, 3 view 2021-10-18 00:00:00 Ashley [facility] Encounters Start Date/Time End Date/Time Encounter Type Admission Type Attending [facility] Care Facility Care Department Encounter ID Source 2021-11-11 00:00:00 2021-11-11 00:00:00 Outpatient Barrett_ Jessica [facility] [id number] [facility] 2021-10-18 00:00:00 2021-10-18 00:00:00 Outpatient Ant Lopez [facility] [id number] [facility] 2021-10-18 00:00:00 2021-10-18 00:00:00 Sinan Salguero MD: [id number] [place] [address] , Ph. [phone] [facility] [place] [facility] [place] [facility] [id number] [facility] 2021-10-18 00:00:00 2021-10-18 00:00:00 Outpatient Sinan Salguero [facility] [id number] 2021-09-12 00:00:00 2021-09-12 00:00:00 Outpatient [facility]_Jose M_ Sinan_ [facility] [id number] [facility]
--- NOTE | 2024-07-14 16:36 | RAD REPORT ---
EXAM: CT brain without contrast HISTORY: syncope;Dizziness COMPARISON: None TECHNIQUE: Multiple contiguous axial images were obtained and a CT of the brain without contrast. Sag ittal and coronal reformats were performed. One or more of the following dose reduction techniques were used: Automated exposure control, adjust ment of the mA and/or kV according to patient size, and/or iterative reconstruction. FINDINGS: No evidence of hydrocephalus, intracranial hemorrhage, or extra-axial fluid collection. The brain is normal in morphology. No evidence of midline shift or areas of brain edema. The calvarium is intact. The visualized paranasal sinuses and mastoid air cells are essentially clear . EXAM: CT of the cervical spine without contrast HISTORY: Neck pain, injury syncope;Dizziness TECHNIQUE: Multiple contiguous axial images were obtained in a CT of the cervical spine without contr ast. Sagittal and coronal reformats were performed. FINDINGS: The vertebral bodies demonstrate normal height and alignment. No evidence of acute fracture or subluxation.. Moderate lower cervical spondylosis. No prevertebral soft tissue swelling is seen. The posterior facets are well aligned. Normal alignment of the skull base with the cervical spine is seen. The lung apices are unremarkable. COMBINED IMPRESSION: No evidence of acute intracranial abnormality. No evidence of acute osseous abnormality of the cervical spine.
--- NOTE | 2024-07-14 17:12 | RAD REPORT ---
EXAMINATION: ONE VIEW CHEST XR CLINICAL INDICATION: syncope TECHNIQUE: Frontal chest projection is submitted. Examination is limited by patient positioning and t echnique. COMPARISON: 08/23/2021 FINDINGS: The lungs are well inflated and clear. The heart is upper limit of normal in size. No displaced fract ures identified. IMPRESSION: No acute intrathoracic abnormalities.
[2024-07-14 17:27] LABS: Absolute Eosinophils 0.1 K/uL (0-0.5); Absolute Lymphocytes (CBC) 1.6 K/uL (0.7-4.9); Absolute Monocytes 0.5 K/uL (0.1-1.3); Absolute Neutrophil 6.6 K/uL (1.8-8.0); Basophils % 0.3 % (0-1.3); Eosinophils % 0.7 % (0-4.4); Hematocrit 43.6 % (36.0-45.0); Hemoglobin 14.7 g/dL (12.0-15.0); Lymphocytes % 18.6 % (15.3-44.8); MCH 30.5 pg (27.0-35.0); MCHC 33.6 g/dL (32.0-36.0); MCV 90.7 fL (80-100); MPV 7.9 fL (7.6-11.3); Monocytes % 5.4 % (3.3-12.3); Nucleated Red Blood Cells % 0.1 % (0-0); Platelets 310 thou/uL (152-406); Red Cell Distribution Width 13.3 % (12.1-15.2)
[2024-07-14 17:33] LABS: PT Prothrombin Time 11.4 SECONDS (10-13.0)
[2024-07-14 17:48] LABS: Albumin 3.9 g/dL (3.4-5.0); Albumin/Globulin Ratio 0.9 (1.1-1.8); Bilirubin Direct 0.2 mg/dL (0-0.2); Bilirubin Indirect, Calculated 0.3 mg/dL (0.2-0.8); Bilirubin Total 0.5 mg/dL (0.2-1.0); Globulin 4.3 g/dL (2.3-3.5); Magnesium 2.3 mg/dL (1.6-2.4); Protein, Total 8.2 g/dL (6.4-8.2)
[2024-07-14] MEDS ORDERED: FAMOTIDINE 20 MG/2 ML VIAL IV ONE (18:10)
[2024-07-14] MEDS ORDERED: NA CHLORIDE 0.9% 500 ML ONE (18:10)
[2024-07-14] MEDS ORDERED: ONDANSETRON 4 MG/2 ML VIAL ONE (18:10)
[2024-07-14] MEDS ORDERED: ACETAMINOPHEN 500 MG TAB ONE (19:22)
--- NOTE | 2024-07-14 19:49 | ER ---
Nurse's Notes [facility] Name: Ashleigh Vogt Age: 63 yrs Sex: Female : 1960 Arrival Date: 07/14/2024 Time: 15:15 Bed 19 Private MD: Diagnosis: Syncope Presentation: 07/14 15:26 Chief complaint: Patient states: Working outside and on the way in got dizzy and passed jl7 out, hit face on the wood floor. Coronavirus screen: At this time, the client does not indicate any symptoms associated with coronavirus-19. Ebola Screen: No symptoms or risks identified at this time. Initial Sepsis Screen: Does the patient meet any 2 criteria? No. Patient's initial sepsis screen is negative. Does the patient have a suspected source of infection? No. Patient's initial sepsis screen is negative. Risk Assessment: Do you want to hurt yourself or someone else? Patient reports no desire to harm self or others. Onset of symptoms was July 14, 2024 at 15:00. 15:26 Method Of Arrival: Ambulatory jl 15:26 Acuity: SCARLETT 2 jl7 Triage Assessment: 15:40 General: Appears in no apparent distress. uncomfortable, Behavior is calm, cooperative, jl7 appropriate for age. Pain: Complains of pain in face. Historical: - Allergies: 15:40 Topamax; jl7 - PMHx: 15:40 Arthritis; Back pain; Depression; High Cholesterol; insomnia; neck pain; jl7 - PSHx: 15:40 Cholecystectomy; jl7 - Immunization history:: Adult Immunizations unknown. - Infectious Disease History:: Denies. - Social history:: Smoking status: unknown. Screenin:01 [facility] ED Fall Risk Assessment (Adult) History of falling in the last 3 months, db including since admission No falls in past 3 months (0 pts) Confusion or Disorientation No (0 pts) Intoxicated or Sedated No (0 pts) Impaired Gait No (0 pts) Mobility Assist Device Used No (0 pt) Altered Elimination No (0 pt) Score/Fall Risk Level 0 - 2 = Low Risk Oriented to surroundings, Maintained a safe environment. Abuse screen: Denies threats or abuse. Denies injuries from another. Nutritional screening: No deficits noted. Tuberculosis screening: No symptoms or risk factors identified. Assessment: 17:48 Reassessment: Patient appears in no apparent distress at this time. Patient and/or db family updated on plan of care and expected duration. Pain level reassessed. Patient is alert, oriented x 3, equal unlabored respirations, skin warm/dry/pink. General: Appears in no apparent distress. comfortable, Behavior is calm, cooperative. Pain: Denies pain. Neuro: Level of Consciousness is awake, alert, obeys commands, Oriented to person, place, time, situation. 19:40 General: Appears in no apparent distress. comfortable, Behavior is calm, cooperative. lg3 Pain: Complains of pain in head Pain does not radiate. Pain currently is 4 out of 10 on a pain scale. Quality of pain is described as heavy, pressure. Neuro: No deficits noted. Ramon Agitation-Sedation Scale (RASS): 0 - Alert and Calm Level of Consciousness is awake, alert, obeys commands, Oriented to person, place, time, situation, Reports headache. Cardiovascular: No deficits noted. Denies chest pain, shortness of breath, Capillary refill < 3 seconds Clubbing of nail beds is absent JVD is absent Patient's skin is warm and dry. Respiratory: No deficits noted. Airway is patent Respiratory effort is even, unlabored, Respiratory pattern is regular, symmetrical, Breath sounds are clear bilaterally. GI: No deficits noted. Abdomen is round non-distended, obese, Bowel sounds present X 4 quads. Abd is soft and non tender X 4 quads. Reports nausea. : No signs and/or symptoms were reported regarding the genitourinary system. EENT: No deficits noted. No signs and/or symptoms were reported regarding the EENT system. Derm: No deficits noted. No signs and/or symptoms reported regarding the dermatologic system. Skin is intact, is healthy with good turgor, Skin is dry, Skin is normal, Skin temperature is warm. Musculoskeletal: No deficits noted. No signs and/or symptoms reported regarding the musculoskeletal system. Circulation, motion, and sensation intact. Range of motion: intact in all extremities. Vital Signs: 15:26 BP 124 / 86; Pulse 82; Resp 17; Pulse Ox 97% ; jl7 17:45 BP 137 / 70; Pulse 55; Resp 17; Pulse Ox 99% ; db 18:15 BP 121 / 72 Supine; Pulse 52; Resp 17; Pulse Ox 100% ; db 18:18 BP 119 / 63 Sitting; Pulse 56; db 18:21 BP 114 / 80 Standing; Pulse 73; db 19:42 BP 139 / 83; Pulse 56; Resp 20 S; Pulse Ox 100% on R/A; lg3 23:59 BP 118 / 74; Pulse 58; Resp 16 S; Temp 97.8(O); Pulse Ox 97% on R/A; Weight 113.4 kg lg3 (R); Height 5 ft. 3 in. (R); 23:59 Body Mass Index 44.29 (113.40 kg, 160.02 cm) lg3 ED Course: 15:17 Patient arrived in ED. im 15:17 Khurram Bridges PA is PHCP. cp 15:17 Philippe Shelton MD is Attending Physician. cp 15:40 Triage completed. jl7 15:40 Arm band placed on right wrist. jl7 15:47 CT Head C Spine In Process Unspecified. EDMS 16:41 XRAY Chest (1 view) In Process Unspecified. EDMS 17:15 Inserted saline lock: 22 gauge in left antecubital area, using aseptic technique. Blood nh2 collected. Flushed with 10 mL NS. 17:18 Basic Metabolic Panel Sent. nh2 17:18 CBC with Diff Sent. nh2 17:18 LFT's Sent. nh2 17:18 Magnesium Sent. nh2 17:18 NT PRO-BNP Sent. nh2 17:18 PT-INR Sent. nh2 17:18 Troponin HS Sent. nh2 17:47 Iliana Truong, RN is Primary Nurse. db 18:27 Patient has correct armband on for positive identification. Bed in low position. Call db light in reach. Side rails up X 1. Client placed on continuous cardiac and pulse oximetry monitoring. NIBP monitoring applied. monitoring specialist on. Pulse ox on. NIBP on. Warm blanket given. Pillow given. 19:48 Boris Anderson MD is Hospitalizing Provider. cp Administered Medications: 18:15 Drug: NS 0.9% IV 500 ml 500 ml IV at 1 bolus once; to be given as a bolus over 30 db minutes Volume: 500 ml; Route: IV; Rate: 1 bolus; Site: left antecubital; 19:41 Follow up: Response: No adverse reaction; IV Status: Completed infusion; IV Intake: lg3 500ml 18:17 Drug: Ondansetron IVP 4 mg IVP once; over 2 minutes Route: IVP; Site: left antecubital; db 19:41 Follow up: Response: No adverse reaction; Marked relief of symptoms lg3 18:17 Drug: Famotidine IVP 20 mg IVP once; dilute with 10 mL 0.9% NaCl; give over 2 minutes db Route: IVP; Site: left antecubital; 19:41 Follow up: Response: No adverse reaction lg3 19:39 Drug: Acetaminophen PO 1000 mg PO once Route: PO; lg3 22:08 Follow up: Response: No adverse reaction; Marked relief of symptoms lg3 22:52 Drug: Ketorolac IVP 15 mg IVP once Route: IVP; Site: left antecubital; lg3 23:58 Follow up: Response: No adverse reaction; Marked relief of symptoms lg3 Medication: 18:01 VIS not applicable for this client. db Intake: 19:41 IV: 500ml; Total: 500ml. lg3 Outcome: 19:48 Decision to Hospitalize by Provider. 07/15 01:17 Admitted to Tele accompanied by nurse, via wheelchair, room 414, with chartban Condition: stable Instructed on the need for admit, 01:17 Patient left the ED. kl Signatures: Dispatcher [employer] EDMS Safia Fisher RN RN Khurram Stover PA PA cp Leal, Jahala RN RN jl7 Jessi Stafford RN RN lg3 Iliana Truong RN RN db Leonor Root Jr, [facility] Corrections: (The following items were deleted from the chart) 00:04 07/14 23:59 BP 118 / 74; Pulse 58bpm; Resp 16bpm; Spontaneous; Pulse Ox 97% RA; Temp lg3 97.8F Oral; lg3
--- NOTE | 2024-07-14 19:49 | EDPHYS ---
Physician Documentation [facility] Name: Ashleigh Vogt Age: 63 yrs Sex: Female : 1960 Arrival Date: 07/14/2024 Time: 15:15 Bed 19 Private MD: ED Physician Philippe Shelton HPI: 07/14 15:33 This 63 yrs old Female presents to ER via Unassigned with complaints of Passed Out cp Prior To Arrival, Dizziness. 15:33 The patient has experienced syncope, lost consciousness. Onset: The symptoms/episode cp began/occurred today, about 1445. 15:33 Duration: This was a single episode, that lasted an unknown period of time. cp 15:33 Context: occurred at home, Just prior to the episode the patient experienced dizziness, cp patient reports she was outside working on car, when she started becoming dizzy. Patient reports walking into home and passing out in doorway. 15:33 Associated signs and symptoms: The patient has no apparent associated signs or symptoms.cp Historical: - Allergies: 15:40 Topamax; jl7 - PMHx: 15:40 Arthritis; Back pain; Depression; High Cholesterol; insomnia; neck pain; jl7 - PSHx: 15:40 Cholecystectomy; jl7 - Immunization history:: Adult Immunizations unknown. - Infectious Disease History:: Denies. - Social history:: Smoking status: unknown. ROS: 15:35 Neuro: Positive for dizziness, syncope, cp 15:35 Cardiovascular: Negative for chest pain, edema, palpitations, cp 15:35 Constitutional: Negative for body aches, chills, fever, poor PO intake, cp 15:35 Eyes: Negative for injury, pain, redness, and discharge, cp 15:35 ENT: Negative for drainage from ear(s), ear pain, sore throat, difficulty swallowing, difficulty handling secretions, 15:35 Respiratory: Negative for cough, shortness of breath, wheezing, 15:35 Abdomen/GI: Negative for abdominal pain, nausea, vomiting, and diarrhea, 15:35 All other systems are negative, Exam: 15:39 Constitutional: The patient appears in no acute distress, alert, awake, cp non-diaphoretic, non-toxic, well developed, well nourished, 15:39 Head/Face: Normocephalic, atraumatic. cp 15:39 Eyes: Periorbital structures: appear normal, Conjunctiva: normal, no exudate, no injection, Sclera: no appreciated abnormality, Lids and lashes: appear normal, bilaterally, 15:39 ENT: External ear(s): are unremarkable, Ear canal(s): are normal, clear, TM's: dullness, bilaterally, Nose: is normal, Mouth: Lips: moist, Oral mucosa: moist, Posterior pharynx: Airway: no evidence of obstruction, patent, 15:39 Neck: C-spine: vertebral tenderness, is not appreciated, crepitus, is not appreciated, ROM/movement: is normal, is supple, without pain, no range of motions limitations, 15:39 Chest/axilla: Inspection: normal, 15:39 Cardiovascular: Rate: normal, Rhythm: regular, Edema: is not appreciated, JVD: is not appreciated, 15:39 Respiratory: the patient does not display signs of respiratory distress, Respirations: normal, no use of accessory muscles, no retractions, labored breathing, is not present, Breath sounds: are clear throughout, no decreased breath sounds, no stridor, no wheezing, 15:39 Abdomen/GI: Inspection: abdomen appears normal, Palpation: abdomen is soft and non-tender, in all quadrants, 15:39 Back: vertebral tenderness, is not appreciated, 15:39 Neuro: Orientation: to person, place \T\ time. Mentation: is normal, Cerebellar function: is grossly normal, Motor: moves all fours, strength is normal, Sensation: is normal, 15:40 ECG was reviewed by the Attending Physician. cp Vital Signs: 15:26 BP 124 / 86; Pulse 82; Resp 17; Pulse Ox 97% ; jl7 17:45 BP 137 / 70; Pulse 55; Resp 17; Pulse Ox 99% ; db 18:15 BP 121 / 72 Supine; Pulse 52; Resp 17; Pulse Ox 100% ; db 18:18 BP 119 / 63 Sitting; Pulse 56; db 18:21 BP 114 / 80 Standing; Pulse 73; db 19:42 BP 139 / 83; Pulse 56; Resp 20 S; Pulse Ox 100% on R/A; lg3 23:59 BP 118 / 74; Pulse 58; Resp 16 S; Temp 97.8(O); Pulse Ox 97% on R/A; Weight 113.4 kg lg3 (R); Height 5 ft. 3 in. (R); 23:59 Body Mass Index 44.29 (113.40 kg, 160.02 cm) lg3 MDM: 15:31 Medical Screening Exam initiated cp 17:00 Differential Diagnosis: aortic aneurysm, cardiac arrhythmia, drug effect, GI bleed, cp idiopathic syncope, seizure, vasovagal episode. 19:00 Data reviewed: vital signs, nurses notes, lab test result(s), EKG, radiologic studies, cp CT scan, plain films, and as a result, I will admit patient. 19:00 Management of patient was discussed with the following: Hospitalist: DR Anderson will cp admit after discussion. I considered the following discharge prescriptions or medication management in the emergency department Medications were administered in the Emergency Department. See MAR. Counseling: I had a detailed discussion with the patient and/or guardian regarding the historical points, exam findings, and any diagnostic results supporting the discharge/admit diagnosis, lab results, radiology results. Response to treatment: the patient's symptoms have markedly improved after treatment, and as a result, I will admit patient. 07/14 15:32 Order name: Basic Metabolic Panel; Complete Time: 18:36 cp 07/14 18:36 Interpretation: Normal except: CRE 1.21; GFR 50. cp 07/14 15:32 Order name: CBC with Diff; Complete Time: 17:33 cp 07/14 17:33 Interpretation: Reviewed. cp 07/14 15:32 Order name: LFT's; Complete Time: 18:36 cp 07/14 18:36 Interpretation: Normal except: ALK 142; GLOB 4.3; A/G 0.9. cp 07/14 15:32 Order name: Magnesium; Complete Time: 18:36 cp 07/14 15:32 Order name: NT PRO-BNP; Complete Time: 18:36 cp 07/14 15:32 Order name: PT-INR; Complete Time: 18:36 cp 07/14 15:32 Order name: Troponin HS; Complete Time: 18:36 cp 07/14 15:33 Order name: UA Rfx Jj Cult if indicated cp 07/14 20:15 Order name: CBC with Automated Diff EDMS 07/14 20:15 Order name: CBC with Automated Diff EDMS 07/14 20:15 Order name: Comprehensive Metabolic Panel EDMS 07/14 20:15 Order name: Comprehensive Metabolic Panel EDMS 07/14 15:32 Order name: CT Head C Spine; Complete Time: 17:33 cp 07/14 15:32 Order name: XRAY Chest (1 view); Complete Time: 17:33 cp 07/14 15:32 Order name: Cardiac monitoring; Complete Time: 18:34 cp 07/14 15:32 Order name: EKG - Nurse/Tech; Complete Time: 18:34 cp 07/14 15:32 Order name: IV Saline Lock; Complete Time: 17:18 cp 07/14 15:32 Order name: Labs collected and sent; Complete Time: 18:34 cp 07/14 15:32 Order name: O2 Per Protocol; Complete Time: 18:35 cp 07/14 15:32 Order name: O2 Sat Monitoring; Complete Time: 18:35 cp 07/14 15:32 Order name: Orthostatics; Complete Time: 18:35 cp EC:40 Rate is 85 beats/min. Rhythm is regular. WA interval is normal. QRS interval is normal. cp QT interval is normal. T waves are Inverted in leads II, V2, V3, V4, V5, V6. Interpreted by me. Reviewed by me. Administered Medications: 18:15 Drug: NS 0.9% IV 500 ml 500 ml IV at 1 bolus once; to be given as a bolus over 30 db minutes Volume: 500 ml; Route: IV; Rate: 1 bolus; Site: left antecubital; 19:41 Follow up: Response: No adverse reaction; IV Status: Completed infusion; IV Intake: lg3 500ml 18:17 Drug: Ondansetron IVP 4 mg IVP once; over 2 minutes Route: IVP; Site: left antecubital; db 19:41 Follow up: Response: No adverse reaction; Marked relief of symptoms lg3 18:17 Drug: Famotidine IVP 20 mg IVP once; dilute with 10 mL 0.9% NaCl; give over 2 minutes db Route: IVP; Site: left antecubital; 19:41 Follow up: Response: No adverse reaction lg3 19:39 Drug: Acetaminophen PO 1000 mg PO once Route: PO; lg3 22:08 Follow up: Response: No adverse reaction; Marked relief of symptoms lg3 22:52 Drug: Ketorolac IVP 15 mg IVP once Route: IVP; Site: left antecubital; lg3 23:58 Follow up: Response: No adverse reaction; Marked relief of symptoms lg3 Disposition Summary: 07/14/24 19:48 Hospitalization Ordered Notes: Hospitalization Status: Observation cp Provider: Boris Anderson cp Location: Telemetry/MedSurg (observation) cp Condition: Stable cp Problem: new cp Symptoms: have improved cp Bed/Room Type: Standard cp Room Assignment: 414(07/14/24 23:19) kmf Diagnosis - Syncope cp Forms: - Medication Reconciliation Form cp - SBAR form cp - Leadership Thank You Letter cp Addendum: 07/18/2024 07:21 Co-signature as Attending Physician, Philippe Shelton MD I reviewed the patient's care r n provided by the Advanced Practice Provider and agree with the diagnosis and treatment plan. Signatures: Dispatcher [employer] EDPhilippe Aquino MD MD rn Page, Corey, PA PA cp Leal, Jahala RN RN jl7 Jessi Stafford RN RN lg3 Iliana Truong RN RN Kelsey Mullen [facility] Corrections: (The following items were deleted from the chart) 07/14 15:32 15:32 Head C Spine MPR Wo Con+CT.RAD.BRZ ordered. EDMS EDMS 15:33 15:33 BASIC METABOLIC PANEL+C.LAB.BRZ ordered. EDMS EDMS 15:33 15:33 CBC+H.LAB.BRZ ordered. EDMS EDMS 15:33 15:33 HEPATIC FUNCTION+C.LAB.BRZ ordered. EDMS EDMS 15:33 15:33 MAGNESIUM+C.LAB.BRZ ordered. EDMS EDMS 15:33 15:33 PROBNP+C.LAB.BRZ ordered. EDMS EDMS 15:33 15:33 PROTIME (+INR)+COAG.LAB.BRZ ordered. EDMS EDMS 15:33 15:33 Troponin High Sensitivity+C.LAB.BRZ ordered. EDMS EDMS 15:33 15:33 Chest Single View+RAD.RAD.BRZ ordered. EDMS EDMS 23:19 19:48 cp kmf
[2024-07-14] MEDS ORDERED: ONDANSETRON 4 MG/2 ML VIAL IV PRN (20:10)
[2024-07-14] MEDS ORDERED: ACETAMINOPHEN 325 MG TABLET PO PRN (20:10)
--- NOTE | 2024-07-14 20:10 | P.HP ---
Certification for Inpatient Patient admitted to: Observation With expected LOS: <2 Midnights Practitioner: I am a practitioner with admitting privileges, knowledge of patient current condition, hospital course, and medical plan of care. Services: Services provided to patient in accordance with Admission requirements found in Title 42 Section 412.3 of the Code of Federal Regulations Patient History Date of Service: 07/15/24 Reason for admission: Syncope History of Present Illness: 63 yrs old Female with past medical history of hypertension, hyperlipidemia, insomnia, depression, arthritis who was brought to ER with syncopal episode. Patient has been having dizziness for the last few days. Denies any chest pain or palpitation. Had a syncopal episode this afternoon and was brought to ER . Denies any head trauma Denies any fever or chills. Denies any chest pain or shortness of breath. No nausea vomiting or diarrhea Patient was assessed in the ER and is admitted for further management of syncope Allergies topiramate [From Topamax] Allergy (Verified 02/23/18 14:45) Unknown Home medications list reviewed: Yes Home Medications: Zolpidem Tartrate [Ambien*] 10 mg PO BEDTIME PRN PRN 02/10/18 Amlodipine Besylate [Norvasc] 1 tab PO DAILY 07/15/24 Atorvastatin Calcium [Lipitor*] 1 tab PO DAILY 07/15/24 Buspirone HCl [Buspar*] 1 tab PO DAILY 07/15/24 Citalopram [Celexa*] 20 mg PO DAILY 07/15/24 Losartan Potassium [Cozaar] 1 tab PO DAILY 07/15/24 - Past Medical/Surgical History Past Medical History: Reviewed- Non-Contributory -: HLD Past Surgical History: Reviewed- Non-Contributory - Social History Smoking Status: Never smoker Review of Systems 10-point ROS is otherwise unremarkable Physical Examination - Vital Signs Temperature: 97.8 F Blood Pressure: 124/86 Pulse: 82 Respirations: 18 Pulse Ox (%): 94 - Physical Exam General: Alert, In no apparent distress, Oriented x3 HEENT: Atraumatic, Normocephalic Neck: Supple Respiratory: Clear to auscultation bilaterally, Normal air movement Cardiovascular: Normal pulses, Regular rate/rhythm, Normal S1 S2 Capillary refill: <2 Seconds Gastrointestinal: Soft and benign, W/out hepatosplenomegaly Musculoskeletal: No clubbing, No swelling Integumentary: No rashes, No significant lesion, No tenderness/swelling Neurological: Normal speech, Normal strength at 5/5 x4 extr, Cranial nerves 3-12 intact, Normal reflexes 2+, Normal affect Lymphatics: No axilla or inguinal lymphadenopathy - Studies Laboratory Data (last 24 hrs) 07/14/24 07/14/24 07/14/24 17:14 17:14 17:14 WBC 8.80 Hgb 14.7 Hct 43.6 Plt Count 310 PT 11.4 INR 1.00 Sodium 137 Potassium 4.0 BUN 14 Creatinine 1.21 H Glucose 94 Magnesium 2.3 Total Bilirubin 0.5 AST 25 ALT 46 Alkaline Phosphatase 142 H Assessment and Plan - Plan Syncope Monitor closely on telemetry Syncopal workup Will get a carotid Doppler and echocardiogram Hyperlipidemia Continue statin BRANDY Monitor renal parameters Electrolytes monitor and replace accordingly UTI Started on IV antibiotic Will obtain cultures Change antibiotic as per sensitivity GI/DVT prophylaxis Advanced directive full code Discharge Plan: Home Plan to discharge in: 24 Hours - Advance Directives Does patient have a Living Will: No Does patient have a Durable POA for Healthcare: No - Code Status/Comfort Care Code Status: Full Code Time Spent Managing Pts Care (In Minutes): 48
[2024-07-14] MEDS ORDERED: NA CHLORIDE 0.9% 1,000 ML ONE (20:33)
[2024-07-14] MEDS: NA CHLORIDE 0.9% 1,000 ML IV SCH (20:40)
[2024-07-14] MEDS ORDERED: KETOROLAC 30 MG/ML INJ ONE (22:36)
[2024-07-14 23:04] LABS: Specific Gravity 1.024 (1.005-1.030); Urine Bacteria <20 /HPF (<20); Urine Bilirubin NEGATIVE (Negative); Urine Blood Negative (Negative); Urine Clarity Extremely Turbid (Clear); Urine Color Yellow (Yellow); Urine Crystals Unidentified Few /HPF (None Seen); Urine Culture Reflex Order REFLEXED; Urine Glucose NEGATIVE (Negative); Urine Ketones NEGATIVE (Negative); Urine Microscopic Reflex YN ORDER UMIC; Urine Mucus 2+ /HPF (None Seen); Urine Nitrite NEGATIVE (Negative); Urine Protein NEGATIVE (Negative); Urine Urobilinogen Normal (Normal); Urine pH 5.5 (5.0-7.0)
[2024-07-14] MEDS: CEFTRIAXONE 1,000 MG in NA CHLORIDE 0.9% 50 ML IVPB SCH (23:55)
[2024-07-14] MEDS ORDERED: CEFTRIAXONE 1000 MG/VIAL ONE (23:55)
[2024-07-15 00:04] VITALS: BMI 44.2
[2024-07-15 00:11] VITALS: O2SAT 97
[2024-07-15] MEDS: HYDROCODONE/APAP 5/325 MG TAB PO PRN (01:25)
[2024-07-15] MEDS: ZOLPIDEM TARTRATE 10 MG TABLET PO PRN (01:47)
[2024-07-15 04:19] LABS: Absolute Basophils 0.1 K/uL (0-0.5); Absolute Eosinophils 0.2 K/uL (0-0.5); Absolute Monocytes 0.7 K/uL (0.1-1.3); Absolute Neutrophil 4.3 K/uL (1.8-8.0); Basophils % 0.8 % (0-1.3); Hematocrit 38.9 % (36.0-45.0); Lymphocytes % 35.8 % (15.3-44.8); MCH 30.6 pg (27.0-35.0); MCHC 33.4 g/dL (32.0-36.0); MCV 91.5 fL (80-100); MPV 8.5 fL (7.6-11.3); Monocytes % 8.8 % (3.3-12.3); Neutrophils % 52.6 % (41.7-73.7); Nucleated Red Blood Cells % 0.1 % (0-0); Platelets 224 thou/uL (152-406); RBC Red Blood Cell Count 4.25 M/uL (3.86-4.86)
[2024-07-15 04:30] LABS: Albumin 3.2 g/dL (3.4-5.0); Albumin/Globulin Ratio 0.9 (1.1-1.8); Anion Gap 13.1 mEq/L (5.0-15.0); Bilirubin Total 0.3 mg/dL (0.2-1.0); Globulin 3.6 g/dL (2.3-3.5); Potassium 4.1 mEq/L (3.5-5.1); Protein, Total 6.8 g/dL (6.4-8.2)
[2024-07-15 04:56] LABS: Anisocytosis 1+; Blood Morphology Comment NOTED (NOT SEEN); Platelet Estimate ADEQ; White Blood Cell Scan OK (OK)
--- NOTE | 2024-07-15 08:10 | RAD REPORT ---
EXAMINATION: US CAROTID DUPLEX CLINICAL INDICATION: , 63 years old. Syncope. TECHNIQUE: Real-time grayscale, color flow and spectral Doppler sonographic images were obtained of t extracranial carotid system using a linear transducer. [id number]. COMPARISON: No prior exam. FINDINGS: RIGHT: Common carotid artery: 83 cm/s Internal carotid artery: 115 cm/s External carotid artery: 100 cm/s Right ICA/CCA ratio: 1.4 Plaque None Vertebral artery Antegrade LEFT: Common carotid artery: 78 cm/s Internal carotid artery: 108 cm/s External carotid artery: 111 cm/s lEFT ICA/CCA ratio: 1.4 Plaque None Vertebral artery Antegrade IMPRESSION: No hemodynamically significant stenosis (greater than 50%) within the extracranial internal carotid a [facility].
[2024-07-15] MEDS: ENOXAPARIN 40 MG/0.4 ML SQ SCH (08:11)
--- NOTE | 2024-07-15 12:37 | ECHO ---
HEIGHT: 5 ft 3 in WEIGHT: 250 lb 0 oz DATE OF STUDY: 07/15/[address]: Scot Anderson DO 2-DIMENSIONAL: YES M.MODE: YES DOPPLER: YES COLOR FLOW: YES TDS: PORTABLE: YES DEFINITY: BUBBLE STUDY: DIAGNOSIS: SYNCOPE CARDIAC HISTORY: CATHERIZATION: NO SURGERY: NO PROSTHETIC VALVE: NO PACEMAKER: NO MEASUREMENTS (cm) DIASTOLIC (NORMALS) SYSTOLIC (NORMALS) IVSd 1.2 (0.6-1.2) LA Diam 2.8 (1.9-4.0) LVEF 52% LVIDd 3.9 (3.5-5.7) LVIDs 2.9 (2.0-3.5) %FS 26% LVPWd 1.3 (0.6-1.2) Ao Diam 2.8 (2.0-3.7) 2 DIMENSIONAL ASSESSMENT: RIGHT ATRIUM: NORMAL LEFT ATRIUM: NORMAL RIGHT VENTRICLE: NORMAL LEFT VENTRICLE: NORMAL TRICUSPID VALVE: TRACE TRICUSPID REGURGITATION MITRAL VALVE: NORMAL PULMONIC VALVE: NORMAL AORTIC VALVE: NORMAL PERICARDIAL EFFUSION: PERICARDIAL FAT PAD AORTIC ROOT: NORMAL LEFT VENTRICULAR WALL MOTION: NORMAL DOPPLER/COLOR FLOW: NORMAL COMMENTS: 1. NORMAL LEFT VENTRICULAR SYSTOLIC FUNCTION, EJECTION FRACTION 60-65%, NORMAL WALL MOTION 2. NORMAL DIASTOLIC FUNCTION TECHNOLOGIST: SARAI SPEARS
--- NOTE | 2024-07-15 13:56 | RAD REPORT ---
EXAMINATION: Brain Wo Cont CLINICAL INDICATION: Female, 63 years old. Persistent headache TECHNIQUE: Multiplanar multisequence MR images of the brain were obtained without intravenous contras t. Unless otherwise specified, incidental findings do not require dedicated imaging follow-up. [id number]. COMPARISON: 08/02/2024 FINDINGS: INTRACRANIAL: No acute infarct identified. No significant mass effect or midline shift.No hydrocepha carey. No significant white matter disease. VASCULATURE: Normal signal voids in the larger intracranial arteries and dural venous sinuses. SINUSES: The paranasal sinuses are predominantly clear.No mastoid effusions. BONE: The marrow signal pattern is within normal limits. IMPRESSION: No acute intracranial abnormality.
--- NOTE | 2024-07-15 14:02 | RAD REPORT ---
EXAMINATION: MRI CERVICAL SPINE WITHOUT CONTRAST CLINICAL INDICATION: Female, 63 years old. Persistent headache/neck pain with radiculopathy TECHNIQUE: Multiplanar multisequence MR images were obtained of the cervical spine without intravenou s contrast. Unless otherwise specified, incidental findings do not require dedicated imaging follow-up. [id number]. COMPARISON: 11/23/2015 FINDINGS: ALIGNMENT: Loss of the normal cervical lordosis. BONE: Vertebral bodies are normal in height. There is a normal marrow signal pattern. CORD: The cervical spinal cord is normal in size, contour and signal intensity. BRAIN: The included intracranial structures are grossly normal. The craniocervical junction is normal . SOFT TISSUE: The paraspinal soft tissues are normal. EVALUATION OF THE INDIVIDUAL LEVELS: C2-C3: Disc is normal in height and signal intensity. No significant spinal canal or neural foraminal stenosis. C3-C4: Left eccentric disc protrusion and uncovertebral joint hypertrophy results in mild left neural foraminal narrowing. The right neural foramen is adequate. There is some contact of the left anterior aspect of the cord but overall no significant central spinal stenosis. This is increased fro m prior. C4-C5: Small posterior disc osteophyte complex and uncal joint hypertrophy with mild bilateral neural foraminal narrowing but no central spinal stenosis. C5-C6: Posterior disc osteophyte complex and uncovertebral joint hypertrophy results in moderate bila teral neural foraminal narrowing. No clinically significant central spinal stenosis is present. C6-C7: Posterior disc osteophyte complex and uncovertebral joint hypertrophy results in mild left davin ral foraminal narrowing. Right neural foramen is adequate. No significant central spinal stenosis. C7-T1: Disc is normal in height and signal intensity. No significant spinal canal or neural foraminal stenosis. IMPRESSION: Mild cervical spondylosis as noted above. There is unlikely to be clinically significant central spin al stenosis however there are varying degrees of neural foraminal narrowing including on the left at C3-4 and bilaterally at C5-6 which could explain a radiculopathy.
[2024-07-15 16:17] VITALS: BP 131/61; TEMP 98.3
== END 2024-07-15 18:21 | disposition home or self-care (01) ==
LOC: ER 15:15 → ERHOLD 20:12 → 4TH 07-15 00:21
PROVIDERS: ADMIT Family Medicine; ATTEND Hospitalist
DX: R55 Syncope and collapse (principal); N17.9 Acute kidney failure, unspecified; N39.0 Urinary tract infection, site not specified; I10 Essential (primary) hypertension; E78.5 Hyperlipidemia, unspecified; G47.00 Insomnia, unspecified; F32.A Depression, unspecified; M19.90 Unspecified osteoarthritis, unspecified site; Z88.0 Allergy status to penicillin
CPT/HCPCS: 96361; 93005; 93306; 87088; 85025 ×2; 81001; 87086; 80048; 36415; 83735; 85610; 80076; 84484; 80053; 83880; 70450; 72125; 71045; 93880; 70551; 72141; 96375; 96374; 99285; J2405; J7040; J7030; J0696 ×2; G0378 ×3; J1650